=== PATIENT | male | born 1965 | race Caucasian/White ===

== ENCOUNTER 2016-12-05 09:27 | Emergency (ER) | payer OTHER ==
[~2016-12-05] VITALS: Ht 180.3 cm; Wt 204.0 kg
[~2016-12-05 09:27] MED LIST: ACETA500 PO; ERGO1CAP10 PO; FURO1TAB60 PO; GABA300C5 PO; LANTINJ SQ; LEVO125T4 PO; LISI10TA3 PO; METF1000 PO; NOVOLOGP2 SQ; PEN29MIS; POTA75TA PO; SIMV20TA PO
[2016-12-05 09:38] VITALS: BP 144/87; PULSE 100; RESP 17; TEMP 98.1; O2SAT 96
[2016-12-05] MEDS ORDERED: POTA-163 PO (09:53)
[2016-12-05] MEDS ORDERED: PERC10TA27 PO (09:55)
[2016-12-05 10:05] VITALS: RESP 18; O2SAT 97
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
[2016-12-05 10:22] LABS: AUTOMATED NEUTROPHIL # 6.3 TH/MM3 (1.8-7.7); BASOPHIL # 0.1 TH/MM3 (0-0.2); BASOPHIL % 0.7 % (0.0-2.0); EOSINOPHIL # 0.2 TH/MM3 (0-0.4); EOSINOPHIL % 2.5 % (0.0-4.0); HEMO FLAGS DIFF FINAL; LYMPH % 18.1 % (9.0-44.0); LYMPHOCYTE # 1.6 TH/MM3 (1.0-4.8); MEAN CELL VOLUME 93.4 FL (80.0-100.0); MEAN CORPUSCULAR HEMOGLOBIN 30.3 PG (27.0-34.0); MEAN CORPUSCULAR HGB CONC 32.4 % (32.0-36.0); MONO % 7.5 % (0.0-8.0); NEUT % 71.2 % (16.0-70.0); PLATELET COUNT 262 TH/MM3 (150-450); RED BLOOD COUNT 5.89 MIL/MM3 (4.50-5.90); RED CELL DISTRIBUTION WIDTH 15.5 % (11.6-17.2); WHITE BLOOD COUNT 8.8 TH/MM3 (4.0-11.0)
[2016-12-05 11:02] LABS: ALT (GPT) 29 U/L (12-78); ANION GAP 8 MEQ/L (5-15); AST (GOT) 21 U/L (15-37); BICARBONATE 21.2 MEQ/L (21.0-32.0); BLOOD UREA NITROGEN 18 MG/DL (7-18); CHLORIDE 109 MEQ/L (98-107); GLOMERULAR FILTRATION RATE 103 ML/MIN (>89); POTASSIUM 4.3 MEQ/L (3.5-5.1); SODIUM (NA) 138 MEQ/L (136-145)
[2016-12-05 11:04] LABS: ALKALINE PHOSPHATASE 81 U/L (45-117); TOTAL BILIRUBIN ADULT 0.4 MG/DL (0.2-1.0)
[2016-12-05 11:14] LABS: ACETAMINOPHEN LESS THAN 2.0 MCG/ML (10.0-30.0); ALCOHOL LESS THAN 3 MG/DL (0-5)
[2016-12-05 12:00] VITALS: BP 130/77; PULSE 78; RESP 17; TEMP 97.8; O2SAT 98
[2016-12-05 17:50] VITALS: BP 130/78; TEMP 97.8
[2016-12-16] MEDS ORDERED: MIRA25TA PO (10:20)
== END 2016-12-05 17:51 | disposition home or self-care (01) ==
LOC: NEPC 09:27
DX: F32.9 Major depressive disorder, single episode, unspecified (principal); F31.9 Bipolar disorder, unspecified; F12.90 Cannabis use, unspecified, uncomplicated; Z63.4 Disappearance and death of family member; Z72.0 Tobacco use
CPT/HCPCS: 80053; 80307; 85025; 99283

== ENCOUNTER 2017-11-01 13:03 | Observation (INO) ==
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
[2017-11-01 13:46] LABS: Baso # (Auto) 0.1 th/mm3 (0.0-0.2); Eos # (Auto) 0.2 th/mm3 (0.0-0.4); Eos % (Auto) 2.8 % (0.0-4.0); Hematocrit 43.4 % (39.0-51.0); Hemoglobin 14.2 gm/dL (13.0-17.0); Lymph # (Auto) 1.3 th/mm3 (1.0-4.8); Lymph % (Auto) 17.3 % (9.0-44.0); Mean Corpuscular HGB Conc 32.8 % (32.0-36.0); Mean Corpuscular Hemoglobin 31.2 pg (27.0-34.0); Mean Corpuscular Volume 95.3 fL (80.0-100.0); Mean Platelet Volume 9.2 fL (7.0-11.0); Mono # (Auto) 0.5 th/mm3 (0.0-0.9); Mono % (Auto) 7.1 % (0.0-8.0); Neut # (Auto) 5.4 th/mm3 (1.8-7.7); Neut % (Auto) 71.8 % (16.0-70.0); Platelet Count 266 th/mm3 (150-450); Red Blood Count 4.55 mil/mm3 (4.50-5.90); Red Cell Distribution Width 16.6 % (11.6-17.2); White Blood Count 7.4 th/mm3 (4.0-11.0)
[2017-11-01 14:06] LABS: Alanine Aminotransferase 31 U/L (12-78); Albumin 2.9 g/dL (3.4-5.0); Anion Gap 9 meq/L (5-15); Aspartate Aminotransferase 20 U/L (15-37); Blood Urea Nitrogen 24 mg/dL (7-18); Calcium 8.9 mg/dL (8.5-10.1); Carbon Dioxide 29.8 meq/L (21.0-32.0); Chloride 102 meq/L (98-107); Glomerular Filtration Rate 50 mL/min (>89); Glucose,Random 152 mg/dL (74-106); Potassium 4.2 meq/L (3.5-5.1); Sodium 141 meq/L (136-145)
[2017-11-01 14:30] LABS: Alkaline Phosphatase 89 U/L (45-117); Thyroid Stimulating Hormone 0.732 uIU/mL (0.358-3.740); Total Protein 7.1 g/dL (6.4-8.2)
[2017-11-01] MEDS ORDERED: Sod Chloride 0.9% Inj 1,000 ML IV.SIG SCH ×2 (14:30→14:45)
[2017-11-01 15:35] LABS: Amphetamine Screen,Urine Neg (Neg); Barbiturate Screen,Urine Neg (Neg); Cannabinoid Screen,Urine Neg (Neg); Cocaine Screen,Urine Neg (Neg)
[2017-11-01 15:56] LABS: Opiate Screen,Urine Neg (Neg)
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
[2017-11-02] MEDS ORDERED: Dextrose 50% in Water 50 ML Vial IV.PUSH PRN (18:07)
[2017-11-02] MEDS: Furosemide 40 MG Tablet PO SCH (22:21)
[2017-11-02] MEDS: Insulin NovoLOG Aspart Correctional Sugar Inj SQ SCH (22:28)
[2017-11-02] MEDS: Olopatadine 0.1% Opth Drops 5 ML Bottle EACH EYE SCH (23:00)
[2017-11-02] MEDS: Latanoprost 0.005% Opth Drops 2.5 ML Bottle EACH EYE SCH (23:00)
[2017-11-02] MEDS: traZODone 50 MG Tablet PO SCH (23:18)
[2017-11-03] MEDS: Insulin Detemir Inj 1,000 UNIT/10 ML Vial SQ SCH ×3 (00:13→21:53)
[2017-11-03] MEDS: Levothyroxine 125 MCG Tablet PO SCH (06:47)
[2017-11-03] MEDS: Insulin NovoLOG Aspart Correctional Sugar Inj SQ SCH ×4 (09:37→22:17)
[2017-11-03] MEDS: Gabapentin 400 MG Capsule PO SCH ×3 (09:38→17:58)
[2017-11-03] MEDS: Ibuprofen 200 MG Tablet PO SCH ×3 (09:39→17:58)
[2017-11-03] MEDS: Lisinopril 10 MG Tablet PO SCH (09:39)
[2017-11-03] MEDS: FLUoxetine 20 MG Capsule PO SCH (09:39)
[2017-11-03] MEDS: Furosemide 40 MG Tablet PO SCH ×2 (09:41→18:09)
[2017-11-03] MEDS: Olopatadine 0.1% Opth Drops 5 ML Bottle EACH EYE SCH ×2 (09:41→21:54)
[2017-11-03] MEDS: Insulin Aspart Prot 70/30 1,000 UNITS/10 ML Vial SQ SCH ×3 (10:32→17:59)
[2017-11-03] MEDS: Latanoprost 0.005% Opth Drops 2.5 ML Bottle EACH EYE SCH (21:54)
[2017-11-03] MEDS: traZODone 50 MG Tablet PO SCH (21:54)
[2017-11-04] MEDS: Levothyroxine 125 MCG Tablet PO SCH (07:12)
[2017-11-04] MEDS: Insulin NovoLOG Aspart Correctional Sugar Inj SQ SCH ×3 (09:06→18:07)
[2017-11-04] MEDS: Insulin Aspart Prot 70/30 1,000 UNITS/10 ML Vial SQ SCH ×3 (09:06→18:50)
[2017-11-04] MEDS: Gabapentin 400 MG Capsule PO SCH ×3 (09:07→18:52)
[2017-11-04] MEDS: FLUoxetine 20 MG Capsule PO SCH (09:07)
[2017-11-04] MEDS: Lisinopril 10 MG Tablet PO SCH (09:08)
[2017-11-04] MEDS: Furosemide 40 MG Tablet PO SCH ×2 (09:08→18:54)
[2017-11-04] MEDS: Ibuprofen 200 MG Tablet PO SCH ×3 (09:08→18:50)
[2017-11-04] MEDS: Insulin Detemir Inj 1,000 UNIT/10 ML Vial SQ SCH (09:08)
[2017-11-04] MEDS: Olopatadine 0.1% Opth Drops 5 ML Bottle EACH EYE SCH (09:10)
[2017-11-05] MEDS: Latanoprost 0.005% Opth Drops 2.5 ML Bottle EACH EYE SCH ×2 (00:08→20:44)
[2017-11-05] MEDS: Olopatadine 0.1% Opth Drops 5 ML Bottle EACH EYE SCH ×3 (00:08→20:44)
[2017-11-05] MEDS: Insulin Detemir Inj 1,000 UNIT/10 ML Vial SQ SCH ×3 (00:09→20:43)
[2017-11-05] MEDS: traZODone 50 MG Tablet PO SCH ×2 (00:15→20:47)
[2017-11-05] MEDS: Insulin NovoLOG Aspart Correctional Sugar Inj SQ SCH ×4 (00:19→20:43)
[2017-11-05] MEDS: Levothyroxine 125 MCG Tablet PO SCH (05:36)
[2017-11-05] MEDS: Ibuprofen 200 MG Tablet PO SCH ×3 (09:49→18:54)
[2017-11-05] MEDS: Gabapentin 400 MG Capsule PO SCH ×3 (09:51→18:54)
[2017-11-05] MEDS: FLUoxetine 20 MG Capsule PO SCH (09:51)
[2017-11-05] MEDS: Lisinopril 10 MG Tablet PO SCH (09:52)
[2017-11-05] MEDS: Furosemide 40 MG Tablet PO SCH ×2 (09:56→19:10)
[2017-11-05] MEDS: Insulin Aspart Prot 70/30 1,000 UNITS/10 ML Vial SQ SCH ×3 (14:09→18:50)
[2017-11-06] MEDS: Levothyroxine 125 MCG Tablet PO SCH (06:26)
[2017-11-06] MEDS: Insulin Detemir Inj 1,000 UNIT/10 ML Vial SQ SCH ×2 (09:27→21:38)
[2017-11-06] MEDS: Lisinopril 10 MG Tablet PO SCH (09:29)
[2017-11-06] MEDS: FLUoxetine 20 MG Capsule PO SCH (09:29)
[2017-11-06] MEDS: Gabapentin 400 MG Capsule PO SCH ×3 (09:29→18:18)
[2017-11-06] MEDS: Furosemide 40 MG Tablet PO SCH ×2 (09:30→18:18)
[2017-11-06] MEDS: Ibuprofen 200 MG Tablet PO SCH ×3 (09:30→18:17)
[2017-11-06] MEDS: Insulin Aspart Prot 70/30 1,000 UNITS/10 ML Vial SQ SCH ×3 (09:32→18:13)
[2017-11-06] MEDS: Olopatadine 0.1% Opth Drops 5 ML Bottle EACH EYE SCH ×2 (09:33→21:24)
[2017-11-06] MEDS: Insulin NovoLOG Aspart Correctional Sugar Inj SQ SCH ×4 (10:08→21:47)
[2017-11-06] MEDS: Nystatin 100,000 UNITS/GM Powder 15 GM Bottle TOPICAL SCH ×3 (13:15→21:26)
[2017-11-06] MEDS: Latanoprost 0.005% Opth Drops 2.5 ML Bottle EACH EYE SCH (21:24)
[2017-11-06] MEDS: traZODone 50 MG Tablet PO SCH (21:24)
[2017-11-07] MEDS: Levothyroxine 125 MCG Tablet PO SCH (06:29)
[2017-11-07] MEDS: Insulin Aspart Prot 70/30 1,000 UNITS/10 ML Vial SQ SCH ×3 (07:14→17:15)
[2017-11-07] MEDS: Insulin NovoLOG Aspart Correctional Sugar Inj SQ SCH ×4 (08:01→21:09)
[2017-11-07] MEDS: Ibuprofen 200 MG Tablet PO SCH ×3 (08:02→17:15)
[2017-11-07] MEDS: Gabapentin 400 MG Capsule PO SCH ×3 (08:04→17:15)
[2017-11-07] MEDS: Furosemide 40 MG Tablet PO SCH ×2 (08:04→17:15)
[2017-11-07] MEDS: Lisinopril 10 MG Tablet PO SCH (08:04)
[2017-11-07] MEDS: Olopatadine 0.1% Opth Drops 5 ML Bottle EACH EYE SCH ×2 (08:04→21:05)
[2017-11-07] MEDS: FLUoxetine 20 MG Capsule PO SCH (08:04)
[2017-11-07] MEDS: Nystatin 100,000 UNITS/GM Powder 15 GM Bottle TOPICAL SCH ×4 (08:05→21:05)
[2017-11-07] MEDS: Insulin Detemir Inj 1,000 UNIT/10 ML Vial SQ SCH ×2 (08:05→21:09)
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
[2017-11-07 16:43] LABS: Hepatitis A IgM Antibody Nonreactive (Nonreactive); Hepatitits B Surface Antigen Nonreactive (Nonreactive)
[2017-11-07] MEDS: Latanoprost 0.005% Opth Drops 2.5 ML Bottle EACH EYE SCH (21:05)
[2017-11-07] MEDS: traZODone 50 MG Tablet PO SCH (21:07)
[2017-11-08] MEDS: Levothyroxine 125 MCG Tablet PO SCH (05:32)
[2017-11-08] MEDS: Lisinopril 10 MG Tablet PO SCH (09:19)
[2017-11-08] MEDS: Gabapentin 400 MG Capsule PO SCH ×3 (09:19→17:31)
[2017-11-08] MEDS: Ibuprofen 200 MG Tablet PO SCH ×3 (09:19→17:31)
[2017-11-08] MEDS: FLUoxetine 20 MG Capsule PO SCH (09:19)
[2017-11-08] MEDS: Insulin Detemir Inj 1,000 UNIT/10 ML Vial SQ SCH ×2 (09:21→21:57)
[2017-11-08] MEDS: Insulin NovoLOG Aspart Correctional Sugar Inj SQ SCH ×4 (09:34→21:58)
[2017-11-08] MEDS: Furosemide 40 MG Tablet PO SCH ×2 (09:34→17:58)
[2017-11-08] MEDS: Nystatin 100,000 UNITS/GM Powder 15 GM Bottle TOPICAL SCH ×4 (09:35→21:58)
[2017-11-08] MEDS: Olopatadine 0.1% Opth Drops 5 ML Bottle EACH EYE SCH ×2 (09:36→21:59)
[2017-11-08] MEDS: Insulin Aspart Prot 70/30 1,000 UNITS/10 ML Vial SQ SCH ×3 (09:39→17:17)
[2017-11-08 10:00] LABS: Baso # (Auto) 0.1 th/mm3 (0.0-0.2); Baso % (Auto) 0.9 % (0.0-2.0); Eos # (Auto) 0.2 th/mm3 (0.0-0.4); Eos % (Auto) 4.5 % (0.0-4.0); Hematocrit 44.6 % (39.0-51.0); Lymph # (Auto) 1.3 th/mm3 (1.0-4.8); Lymph % (Auto) 23.8 % (9.0-44.0); Mean Corpuscular HGB Conc 33.6 % (32.0-36.0); Mean Corpuscular Hemoglobin 31.6 pg (27.0-34.0); Mean Corpuscular Volume 93.9 fL (80.0-100.0); Mean Platelet Volume 9.5 fL (7.0-11.0); Mono # (Auto) 0.6 th/mm3 (0.0-0.9); Mono % (Auto) 10.3 % (0.0-8.0); Neut # (Auto) 3.3 th/mm3 (1.8-7.7); Neut % (Auto) 60.5 % (16.0-70.0); Platelet Count 199 th/mm3 (150-450); Red Blood Count 4.75 mil/mm3 (4.50-5.90); Red Cell Distribution Width 17.2 % (11.6-17.2); White Blood Count 5.5 th/mm3 (4.0-11.0)
[2017-11-08 10:24] LABS: Albumin 3.3 g/dL (3.4-5.0); Anion Gap 7 meq/L (5-15); Blood Urea Nitrogen 24 mg/dL (7-18); Calcium 8.8 mg/dL (8.5-10.1); Carbon Dioxide 31.5 meq/L (21.0-32.0); Chloride 102 meq/L (98-107); Cholesterol 178 mg/dL (120-200); Glomerular Filtration Rate 82 mL/min (>89); Glucose,Random 123 mg/dL (74-106); Potassium 4.1 meq/L (3.5-5.1); Sodium 140 meq/L (136-145)
[2017-11-08 10:45] LABS: Alanine Aminotransferase 26 U/L (12-78); Alkaline Phosphatase 77 U/L (45-117); Aspartate Aminotransferase 19 U/L (15-37); Chol/HDL Ratio 4.86 Ratio; Free T4 (Free Thyroxine) 1.26 ng/dL (0.76-1.46); HDL Cholesterol 36.6 mg/dL (40.0-60.0); LDL Cholesterol,Calculated 94 mg/dL (0-99); Phosphorus 3.6 mg/dL (2.5-4.9); Thyroid Stimulating Hormone 0.954 uIU/mL (0.358-3.740); Total Protein 7.7 g/dL (6.4-8.2); Triglycerides 237 mg/dL (42-150)
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
[2017-11-08 16:32] LABS: Hemoglobin A1c 7.1 % (4.3-6.0)
[2017-11-08] MEDS: traZODone 50 MG Tablet PO SCH (21:57)
[2017-11-08] MEDS: Latanoprost 0.005% Opth Drops 2.5 ML Bottle EACH EYE SCH (21:59)
[2017-11-09] MEDS: Levothyroxine 125 MCG Tablet PO SCH (05:25)
[2017-11-09] MEDS: Gabapentin 400 MG Capsule PO SCH ×3 (09:35→18:16)
[2017-11-09] MEDS: FLUoxetine 20 MG Capsule PO SCH (09:35)
[2017-11-09] MEDS: Ibuprofen 200 MG Tablet PO SCH ×3 (09:36→18:15)
[2017-11-09] MEDS: Lisinopril 10 MG Tablet PO SCH (09:36)
[2017-11-09] MEDS: Nystatin 100,000 UNITS/GM Powder 15 GM Bottle TOPICAL SCH ×4 (09:37→20:58)
[2017-11-09] MEDS: Olopatadine 0.1% Opth Drops 5 ML Bottle EACH EYE SCH ×2 (09:38→20:59)
[2017-11-09] MEDS: Furosemide 40 MG Tablet PO SCH ×2 (09:41→18:16)
[2017-11-09] MEDS: Insulin NovoLOG Aspart Correctional Sugar Inj SQ SCH ×4 (09:41→20:59)
[2017-11-09] MEDS: Insulin Aspart Prot 70/30 1,000 UNITS/10 ML Vial SQ SCH ×3 (09:42→18:12)
[2017-11-09] MEDS: Insulin Detemir Inj 1,000 UNIT/10 ML Vial SQ SCH ×2 (09:46→21:12)
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
[2017-11-09] MEDS: traZODone 50 MG Tablet PO SCH (20:57)
[2017-11-09] MEDS: Latanoprost 0.005% Opth Drops 2.5 ML Bottle EACH EYE SCH (20:58)
[2017-11-10] MEDS: Levothyroxine 125 MCG Tablet PO SCH (05:08)
[2017-11-10] MEDS: Lisinopril 10 MG Tablet PO SCH (09:27)
[2017-11-10] MEDS: Gabapentin 400 MG Capsule PO SCH ×3 (09:27→18:04)
[2017-11-10] MEDS: Ibuprofen 200 MG Tablet PO SCH ×3 (09:27→18:04)
[2017-11-10] MEDS: FLUoxetine 20 MG Capsule PO SCH (09:27)
[2017-11-10] MEDS: Insulin Detemir Inj 1,000 UNIT/10 ML Vial SQ SCH ×2 (09:28→21:52)
[2017-11-10] MEDS: Insulin NovoLOG Aspart Correctional Sugar Inj SQ SCH ×4 (09:28→21:52)
[2017-11-10] MEDS: Insulin Aspart Prot 70/30 1,000 UNITS/10 ML Vial SQ SCH ×3 (09:28→18:05)
[2017-11-10] MEDS: Furosemide 40 MG Tablet PO SCH ×2 (09:28→18:05)
[2017-11-10] MEDS: Olopatadine 0.1% Opth Drops 5 ML Bottle EACH EYE SCH ×2 (09:29→21:53)
[2017-11-10] MEDS: Nystatin 100,000 UNITS/GM Powder 15 GM Bottle TOPICAL SCH ×4 (09:29→21:53)
[2017-11-10] MEDS: traZODone 50 MG Tablet PO SCH ×2 (21:52→21:55)
[2017-11-10] MEDS: Latanoprost 0.005% Opth Drops 2.5 ML Bottle EACH EYE SCH (21:53)
[2017-11-11] MEDS: Levothyroxine 125 MCG Tablet PO SCH (05:10)
[2017-11-11] MEDS: Insulin Aspart Prot 70/30 1,000 UNITS/10 ML Vial SQ SCH ×3 (09:06→16:19)
[2017-11-11] MEDS: Insulin NovoLOG Aspart Correctional Sugar Inj SQ SCH ×4 (09:06→22:25)
[2017-11-11] MEDS: Gabapentin 400 MG Capsule PO SCH ×3 (09:38→17:57)
[2017-11-11] MEDS: Ibuprofen 200 MG Tablet PO SCH ×3 (09:39→17:57)
[2017-11-11] MEDS: FLUoxetine 20 MG Capsule PO SCH (09:39)
[2017-11-11] MEDS: Lisinopril 10 MG Tablet PO SCH (09:39)
[2017-11-11] MEDS: Olopatadine 0.1% Opth Drops 5 ML Bottle EACH EYE SCH ×2 (09:40→22:27)
[2017-11-11] MEDS: Nystatin 100,000 UNITS/GM Powder 15 GM Bottle TOPICAL SCH ×4 (09:40→22:25)
[2017-11-11] MEDS: Insulin Detemir Inj 1,000 UNIT/10 ML Vial SQ SCH ×2 (09:40→22:25)
[2017-11-11] MEDS: Furosemide 40 MG Tablet PO SCH ×2 (09:41→17:57)
[2017-11-11] MEDS: traZODone 50 MG Tablet PO SCH (22:25)
[2017-11-11] MEDS: Latanoprost 0.005% Opth Drops 2.5 ML Bottle EACH EYE SCH (22:26)
[2017-11-12] MEDS: Levothyroxine 125 MCG Tablet PO SCH (05:57)
[2017-11-12] MEDS: FLUoxetine 20 MG Capsule PO SCH (09:23)
[2017-11-12] MEDS: Ibuprofen 200 MG Tablet PO SCH ×3 (09:23→18:09)
[2017-11-12] MEDS: Gabapentin 400 MG Capsule PO SCH ×3 (09:24→18:08)
[2017-11-12] MEDS: Insulin Aspart Prot 70/30 1,000 UNITS/10 ML Vial SQ SCH ×3 (09:24→18:09)
[2017-11-12] MEDS: Insulin NovoLOG Aspart Correctional Sugar Inj SQ SCH ×4 (09:24→20:53)
[2017-11-12] MEDS: Lisinopril 10 MG Tablet PO SCH (09:24)
[2017-11-12] MEDS: Insulin Detemir Inj 1,000 UNIT/10 ML Vial SQ SCH ×2 (09:25→20:52)
[2017-11-12] MEDS: Nystatin 100,000 UNITS/GM Powder 15 GM Bottle TOPICAL SCH ×4 (09:25→20:53)
[2017-11-12] MEDS: Olopatadine 0.1% Opth Drops 5 ML Bottle EACH EYE SCH ×2 (09:26→20:53)
[2017-11-12] MEDS: Furosemide 40 MG Tablet PO SCH ×2 (09:34→18:09)
[2017-11-12] MEDS: traZODone 50 MG Tablet PO SCH (20:52)
[2017-11-12] MEDS: Latanoprost 0.005% Opth Drops 2.5 ML Bottle EACH EYE SCH (20:54)
[2017-11-13] MEDS: Levothyroxine 125 MCG Tablet PO SCH (05:05)
[2017-11-13] MEDS: Insulin NovoLOG Aspart Correctional Sugar Inj SQ SCH ×4 (08:43→20:33)
[2017-11-13] MEDS: Ibuprofen 200 MG Tablet PO SCH ×3 (09:27→18:16)
[2017-11-13] MEDS: FLUoxetine 20 MG Capsule PO SCH (09:28)
[2017-11-13] MEDS: Insulin Aspart Prot 70/30 1,000 UNITS/10 ML Vial SQ SCH ×3 (09:28→18:17)
[2017-11-13] MEDS: Furosemide 40 MG Tablet PO SCH ×2 (09:28→18:17)
[2017-11-13] MEDS: Gabapentin 400 MG Capsule PO SCH ×3 (09:28→18:17)
[2017-11-13] MEDS: Lisinopril 10 MG Tablet PO SCH (09:28)
[2017-11-13] MEDS: Olopatadine 0.1% Opth Drops 5 ML Bottle EACH EYE SCH ×2 (09:29→20:33)
[2017-11-13] MEDS: Insulin Detemir Inj 1,000 UNIT/10 ML Vial SQ SCH ×2 (09:29→20:33)
[2017-11-13] MEDS: Nystatin 100,000 UNITS/GM Powder 15 GM Bottle TOPICAL SCH ×4 (09:29→20:33)
[2017-11-13] MEDS: traZODone 50 MG Tablet PO SCH (20:32)
[2017-11-13] MEDS: Latanoprost 0.005% Opth Drops 2.5 ML Bottle EACH EYE SCH (20:33)
[2017-11-14] MEDS: Levothyroxine 125 MCG Tablet PO SCH (05:05)
[2017-11-14] MEDS: FLUoxetine 20 MG Capsule PO SCH (08:26)
[2017-11-14] MEDS: Insulin NovoLOG Aspart Correctional Sugar Inj SQ SCH ×4 (08:27→20:07)
[2017-11-14] MEDS: Gabapentin 400 MG Capsule PO SCH ×3 (08:27→17:07)
[2017-11-14] MEDS: Insulin Aspart Prot 70/30 1,000 UNITS/10 ML Vial SQ SCH ×3 (08:27→17:07)
[2017-11-14] MEDS: Lisinopril 10 MG Tablet PO SCH (08:27)
[2017-11-14] MEDS: Ibuprofen 200 MG Tablet PO SCH ×3 (08:28→17:07)
[2017-11-14] MEDS: Insulin Detemir Inj 1,000 UNIT/10 ML Vial SQ SCH ×2 (08:28→20:08)
[2017-11-14] MEDS: Nystatin 100,000 UNITS/GM Powder 15 GM Bottle TOPICAL SCH ×4 (08:29→20:04)
[2017-11-14] MEDS: Furosemide 40 MG Tablet PO SCH ×2 (08:30→17:07)
[2017-11-14] MEDS: Olopatadine 0.1% Opth Drops 5 ML Bottle EACH EYE SCH ×2 (08:31→20:04)
--- NOTE | 2017-11-14 09:01 | P.PNIM ---
Subjective Interval history: Placement remains the primary issue on this 'bedded outpatient' status patient. No medical concerns. Physical Exam Vital signs: Vital Signs 11/13/17 12:00 11/13/17 16:00 11/13/17 18:00 Temperature 98.3 F 98.6 F 98.6 F Pulse Rate 82 84 84 Respiratory Rate 17 20 20 Blood Pressure 126/78 134/65 134/65 Pulse Oximetry 95 92 L 92 L 11/13/17 20:00 11/14/17 00:00 11/14/17 04:00 Temperature 97.5 F L 97.8 F 97.8 F Pulse Rate 75 72 74 Respiratory Rate 22 17 17 Blood Pressure 138/65 132/67 136/65 Pulse Oximetry 95 95 94 L 11/14/17 05:53 Temperature Pulse Rate Respiratory Rate 16 Blood Pressure Pulse Oximetry Intake & Output 11/13/17 11/14/17 11/14/17 18:59 06:59 18:59 Intake Total 480 / 480 Balance 480 / 480 Weight 196.4 kg Intake: Oral 480 / 480 Other: # Voids 5 Date of Last Bowel Movement 11/11/17 # Bowel Movements 0 Results - Labs CBC & Chem 7: 11/08/17 09:15 11/08/17 09:15 Laboratory Results - last 24 hr 11/13/17 11/13/17 11/14/17 11:29 19:44 07:34 POC Glucose 153 H 197 H 107 - Procedures NONE Assessment and Plan - Assessment (1) Encounter for medical clearance for patient hold Code(s): Z00.8 - Encounter for other general examination Status: Acute (2) Adjustment disorder with mixed disturbance of emotions and conduct Code(s): F43.25 - Adjustment disorder with mixed disturbance of emotions and conduct Status: Acute (3) Social problem Code(s): Z65.9 - Problem related to unspecified psychosocial circumstances Status: Acute - Plan 52-year-old male in the emergency department secondary to adjustment disorder with difficult placement situation. Anxiety COPD (chronic obstructive pulmonary disease) Cellulitis Chronic pain Depressive disorder Diabetes Hypertension Continue baseline treatments DVT prophylaxis SCDs Discharge planning Patient has no medical issues to justify a hospital admit, 'bedded outpatient' status discharge when placement available, as of 11/02/17
[2017-11-14] MEDS: Latanoprost 0.005% Opth Drops 2.5 ML Bottle EACH EYE SCH (20:05)
[2017-11-14] MEDS: traZODone 50 MG Tablet PO SCH (20:06)
[2017-11-15] MEDS: Levothyroxine 125 MCG Tablet PO SCH (05:36)
[2017-11-15] MEDS: Insulin Detemir Inj 1,000 UNIT/10 ML Vial SQ SCH ×2 (09:28→21:37)
[2017-11-15] MEDS: Ibuprofen 200 MG Tablet PO SCH ×3 (09:29→17:40)
[2017-11-15] MEDS: Gabapentin 400 MG Capsule PO SCH ×3 (09:29→17:41)
[2017-11-15] MEDS: Lisinopril 10 MG Tablet PO SCH (09:31)
[2017-11-15] MEDS: FLUoxetine 20 MG Capsule PO SCH (09:31)
[2017-11-15] MEDS: Insulin NovoLOG Aspart Correctional Sugar Inj SQ SCH ×4 (09:32→21:38)
[2017-11-15] MEDS: Insulin Aspart Prot 70/30 1,000 UNITS/10 ML Vial SQ SCH ×3 (09:32→17:42)
[2017-11-15] MEDS: Olopatadine 0.1% Opth Drops 5 ML Bottle EACH EYE SCH ×2 (09:33→21:43)
[2017-11-15] MEDS: Nystatin 100,000 UNITS/GM Powder 15 GM Bottle TOPICAL SCH ×4 (09:33→21:38)
[2017-11-15] MEDS: Furosemide 40 MG Tablet PO SCH ×2 (09:38→17:40)
--- NOTE | 2017-11-15 17:25 | P.PN ---
Subjective Interval history: Patient was seen today. No acute complaints. Wants trazodone to be discontinued. Placement issue remains. Physical Exam Vital signs: Vital Signs 11/14/17 20:00 11/15/17 00:00 11/15/17 04:00 Temperature 96.9 F L 97.6 F 97.7 F Pulse Rate 78 71 77 Respiratory Rate 16 18 18 Blood Pressure 120/73 113/68 125/75 Pulse Oximetry 95 96 97 11/15/17 08:00 11/15/17 11:29 11/15/17 12:00 Temperature 97.5 F L 97.3 F L Pulse Rate 77 95 H Respiratory Rate 22 18 22 Blood Pressure 152/91 H 142/69 H Pulse Oximetry 94 L 94 L 11/15/17 14:11 Temperature Pulse Rate Respiratory Rate 18 Blood Pressure Pulse Oximetry Intake & Output 11/14/17 11/15/17 11/15/17 18:59 06:59 18:59 Intake Total 600 / 600 Output Total 600 / 600 Balance 0 / 0 Weight 197.1 kg Intake: Oral 600 / 600 Output: Urine 600 / 600 Other: # Voids 4 Date of Last Bowel Movement 11/11/17 11/11/17 Narrative: GENERAL: This is an obese male, in no apparent distress. SKIN: Warm and dry. HEENT: Normocephalic. Pupils equal round and reactive. Nose without bleeding. Airway patent. NECK: Trachea midline. CARDIOVASCULAR: Regular rate and rhythm without murmurs, gallops, or rubs. RESPIRATORY: No wheezes, rales, or rhonchi. GASTROINTESTINAL: Abdomen soft, non-tender, obese. Bowel Sounds normoactive x4. MUSCULOSKELETAL: Extremities without clubbing, cyanosis. NEUROLOGICAL: Awake and alert. No focal neuro deficit. Moves all extremities. Normal speech. Results - Labs CBC & Chem 7: 11/08/17 09:15 11/08/17 09:15 Laboratory Results - last 24 hr 11/14/17 11/15/17 20:03 07:49 POC Glucose 110 97 - Procedures NONE Assessment and Plan - Assessment (1) Encounter for medical clearance for patient hold Code(s): Z00.8 - Encounter for other general examination Status: Acute (2) Adjustment disorder with mixed disturbance of emotions and conduct Code(s): F43.25 - Adjustment disorder with mixed disturbance of emotions and conduct Status: Acute (3) Social problem Code(s): Z65.9 - Problem related to unspecified psychosocial circumstances Status: Acute - Plan 52-year-old male in the emergency department secondary to adjustment disorder with difficult placement situation. Anxiety COPD (chronic obstructive pulmonary disease) Cellulitis Chronic pain Depressive disorder Diabetes Hypertension -Continue baseline treatments -Hold trazodone -E-FORCSE Prescription Drug Monitoring Database has been queried and verified prior to prescribing the controlled substance. On Alprazolam 0.5mg TID , last prescribed 09/03/17. Will give alprazolam 0.5 mg BID PRN. DVT prophylaxis SCDs Code Status: Full code Discussed Condition With: Patient, nurse Discharge Planning: Placement issue. Patient is bedded outpatient
[2017-11-15] MEDS: ALPRAZolam 0.5 MG Tablet PO PRN (21:37)
[2017-11-15] MEDS: Latanoprost 0.005% Opth Drops 2.5 ML Bottle EACH EYE SCH (21:42)
[2017-11-16] MEDS: Levothyroxine 125 MCG Tablet PO SCH (06:11)
[2017-11-16] MEDS: FLUoxetine 20 MG Capsule PO SCH (08:43)
[2017-11-16] MEDS: Gabapentin 400 MG Capsule PO SCH ×3 (08:46→18:20)
[2017-11-16] MEDS: Lisinopril 10 MG Tablet PO SCH (08:47)
[2017-11-16] MEDS: Ibuprofen 200 MG Tablet PO SCH ×3 (08:48→18:20)
[2017-11-16] MEDS: Olopatadine 0.1% Opth Drops 5 ML Bottle EACH EYE SCH ×2 (08:53→20:44)
[2017-11-16] MEDS: Insulin NovoLOG Aspart Correctional Sugar Inj SQ SCH ×4 (08:58→20:44)
[2017-11-16] MEDS: Furosemide 40 MG Tablet PO SCH ×2 (10:22→19:20)
[2017-11-16] MEDS: Insulin Detemir Inj 1,000 UNIT/10 ML Vial SQ SCH ×2 (10:22→20:39)
[2017-11-16] MEDS: Nystatin 100,000 UNITS/GM Powder 15 GM Bottle TOPICAL SCH ×4 (10:23→20:44)
[2017-11-16] MEDS: Insulin Aspart Prot 70/30 1,000 UNITS/10 ML Vial SQ SCH ×3 (10:40→18:18)
--- NOTE | 2017-11-16 15:37 | P.PN ---
Subjective Interval history: Patient was seen today. No acute complaints. Laying in the recliner, falling asleep. Physical Exam Vital signs: Vital Signs 11/15/17 16:00 11/15/17 19:09 11/15/17 20:00 Temperature 97.6 F 97.8 F Pulse Rate 77 87 Respiratory Rate 20 18 18 Blood Pressure 134/70 100/59 L Pulse Oximetry 94 L 97 11/16/17 00:00 11/16/17 04:00 11/16/17 08:00 Temperature 98.8 F 97.4 F L 97.1 F L Pulse Rate 79 83 83 Respiratory Rate 18 20 20 Blood Pressure 120/64 94/72 L 140/71 Pulse Oximetry 92 L 92 L 87 L Intake & Output 11/15/17 11/16/17 11/16/17 18:59 06:59 18:59 Intake Total 440 / 440 Balance 440 / 440 Weight 193.2 kg Intake: Oral 440 / 440 Other: # Voids 6 Date of Last Bowel Movement 11/11/17 11/16/17 # Bowel Movements 0 Narrative: GENERAL: This is an obese male, in no apparent distress. MUSCULOSKELETAL: Extremities without clubbing, cyanosis. NEUROLOGICAL:No focal neuro deficit. Moves all extremities. Normal speech. Results - Labs CBC & Chem 7: 11/08/17 09:15 11/08/17 09:15 Laboratory Results - last 24 hr 11/15/17 11/16/17 11/16/17 20:34 07:59 12:50 POC Glucose 114 H 122 H 118 H - Procedures NONE Assessment and Plan - Assessment (1) Encounter for medical clearance for patient hold Code(s): Z00.8 - Encounter for other general examination Status: Acute (2) Adjustment disorder with mixed disturbance of emotions and conduct Code(s): F43.25 - Adjustment disorder with mixed disturbance of emotions and conduct Status: Acute (3) Social problem Code(s): Z65.9 - Problem related to unspecified psychosocial circumstances Status: Acute - Plan 52-year-old male in the emergency department secondary to adjustment disorder with difficult placement situation. Anxiety COPD (chronic obstructive pulmonary disease) Cellulitis Chronic pain Depressive disorder Diabetes Hypertension -Continue baseline treatments -Hold trazodone -E-FORCSE Prescription Drug Monitoring Database has been queried and verified prior to prescribing the controlled substance. On Alprazolam 0.5mg TID , last prescribed 09/03/17. Will give alprazolam 0.5 mg q8 PRN. DVT prophylaxis SCDs Code Status: Full code Discussed Condition With: Patient, nursing Discharge Planning: Placement issue. Patient is bedded outpatient
[2017-11-16] MEDS: Latanoprost 0.005% Opth Drops 2.5 ML Bottle EACH EYE SCH (20:41)
[2017-11-16] MEDS: ALPRAZolam 0.5 MG Tablet PO PRN (20:43)
[2017-11-17] MEDS: Levothyroxine 125 MCG Tablet PO SCH (05:36)
[2017-11-17] MEDS: FLUoxetine 20 MG Capsule PO SCH (09:59)
[2017-11-17] MEDS: Gabapentin 400 MG Capsule PO SCH ×3 (09:59→19:00)
[2017-11-17] MEDS: Ibuprofen 200 MG Tablet PO SCH ×3 (10:00→18:59)
[2017-11-17] MEDS: Furosemide 40 MG Tablet PO SCH ×2 (10:02→19:03)
[2017-11-17] MEDS: Lisinopril 10 MG Tablet PO SCH (10:03)
[2017-11-17] MEDS: Nystatin 100,000 UNITS/GM Powder 15 GM Bottle TOPICAL SCH ×4 (10:05→20:56)
[2017-11-17] MEDS: Insulin NovoLOG Aspart Correctional Sugar Inj SQ SCH ×4 (10:05→21:01)
[2017-11-17] MEDS: Olopatadine 0.1% Opth Drops 5 ML Bottle EACH EYE SCH ×2 (10:05→20:56)
[2017-11-17] MEDS: Insulin Aspart Prot 70/30 1,000 UNITS/10 ML Vial SQ SCH ×3 (10:11→19:01)
[2017-11-17] MEDS: Insulin Detemir Inj 1,000 UNIT/10 ML Vial SQ SCH ×2 (10:12→20:56)
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
[2017-11-17] MEDS: Latanoprost 0.005% Opth Drops 2.5 ML Bottle EACH EYE SCH (20:56)
[2017-11-18] MEDS: Levothyroxine 125 MCG Tablet PO SCH (05:44)
[2017-11-18] MEDS: ALPRAZolam 0.5 MG Tablet PO PRN (05:47)
[2017-11-18] MEDS: Insulin NovoLOG Aspart Correctional Sugar Inj SQ SCH ×4 (07:45→22:11)
[2017-11-18] MEDS: Ibuprofen 200 MG Tablet PO SCH ×3 (08:16→17:46)
[2017-11-18] MEDS: Gabapentin 400 MG Capsule PO SCH ×3 (08:16→17:46)
[2017-11-18] MEDS: FLUoxetine 20 MG Capsule PO SCH (08:16)
[2017-11-18] MEDS: Lisinopril 10 MG Tablet PO SCH (08:17)
[2017-11-18] MEDS: Insulin Aspart Prot 70/30 1,000 UNITS/10 ML Vial SQ SCH ×3 (08:17→17:47)
[2017-11-18] MEDS: Furosemide 40 MG Tablet PO SCH ×2 (08:18→17:46)
[2017-11-18] MEDS: Insulin Detemir Inj 1,000 UNIT/10 ML Vial SQ SCH ×2 (08:19→22:10)
[2017-11-18] MEDS: Nystatin 100,000 UNITS/GM Powder 15 GM Bottle TOPICAL SCH ×4 (08:19→22:11)
[2017-11-18] MEDS: Olopatadine 0.1% Opth Drops 5 ML Bottle EACH EYE SCH ×2 (08:19→22:12)
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
[2017-11-18] MEDS: Latanoprost 0.005% Opth Drops 2.5 ML Bottle EACH EYE SCH (22:12)
[2017-11-19] MEDS: Levothyroxine 125 MCG Tablet PO SCH (05:40)
[2017-11-19] MEDS: Ibuprofen 200 MG Tablet PO SCH ×3 (08:33→17:34)
[2017-11-19] MEDS: Lisinopril 10 MG Tablet PO SCH (08:33)
[2017-11-19] MEDS: Insulin NovoLOG Aspart Correctional Sugar Inj SQ SCH ×4 (08:34→22:06)
[2017-11-19] MEDS: Insulin Aspart Prot 70/30 1,000 UNITS/10 ML Vial SQ SCH ×3 (08:35→17:38)
[2017-11-19] MEDS: Insulin Detemir Inj 1,000 UNIT/10 ML Vial SQ SCH ×2 (08:35→22:06)
[2017-11-19] MEDS: Gabapentin 400 MG Capsule PO SCH ×3 (08:35→17:34)
[2017-11-19] MEDS: Furosemide 40 MG Tablet PO SCH ×2 (08:40→17:35)
[2017-11-19] MEDS: Nystatin 100,000 UNITS/GM Powder 15 GM Bottle TOPICAL SCH ×4 (08:41→22:07)
[2017-11-19] MEDS: Olopatadine 0.1% Opth Drops 5 ML Bottle EACH EYE SCH ×2 (08:41→22:07)
[2017-11-19] MEDS: FLUoxetine 20 MG Capsule PO SCH (08:41)
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
[2017-11-19] MEDS: Latanoprost 0.005% Opth Drops 2.5 ML Bottle EACH EYE SCH (22:07)
[2017-11-20] MEDS: Levothyroxine 125 MCG Tablet PO SCH (05:56)
[2017-11-20] MEDS: Lisinopril 10 MG Tablet PO SCH (08:06)
[2017-11-20] MEDS: Insulin NovoLOG Aspart Correctional Sugar Inj SQ SCH ×4 (08:06→21:34)
[2017-11-20] MEDS: Furosemide 40 MG Tablet PO SCH ×2 (08:07→17:20)
[2017-11-20] MEDS: Gabapentin 400 MG Capsule PO SCH ×3 (08:07→17:20)
[2017-11-20] MEDS: Ibuprofen 200 MG Tablet PO SCH (08:07)
[2017-11-20] MEDS: FLUoxetine 20 MG Capsule PO SCH (08:08)
[2017-11-20] MEDS: Insulin Aspart Prot 70/30 1,000 UNITS/10 ML Vial SQ SCH ×3 (08:08→17:21)
[2017-11-20] MEDS: Insulin Detemir Inj 1,000 UNIT/10 ML Vial SQ SCH ×2 (08:09→21:35)
[2017-11-20] MEDS: Olopatadine 0.1% Opth Drops 5 ML Bottle EACH EYE SCH ×2 (08:10→21:20)
[2017-11-20] MEDS: Nystatin 100,000 UNITS/GM Powder 15 GM Bottle TOPICAL SCH ×4 (08:10→21:20)
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
[2017-11-20] MEDS: Latanoprost 0.005% Opth Drops 2.5 ML Bottle EACH EYE SCH (21:20)
[2017-11-21] MEDS: Ibuprofen 400 MG Tablet PO PRN (02:49)
[2017-11-21] MEDS: ALPRAZolam 0.5 MG Tablet PO PRN ×2 (02:52→20:22)
[2017-11-21] MEDS: Levothyroxine 125 MCG Tablet PO SCH (06:13)
[2017-11-21] MEDS: Insulin NovoLOG Aspart Correctional Sugar Inj SQ SCH ×4 (08:55→20:24)
[2017-11-21] MEDS: Insulin Detemir Inj 1,000 UNIT/10 ML Vial SQ SCH ×2 (08:56→20:23)
[2017-11-21] MEDS: Insulin Aspart Prot 70/30 1,000 UNITS/10 ML Vial SQ SCH ×3 (09:00→18:41)
[2017-11-21] MEDS: Gabapentin 400 MG Capsule PO SCH ×3 (09:02→18:46)
[2017-11-21] MEDS: Olopatadine 0.1% Opth Drops 5 ML Bottle EACH EYE SCH ×2 (09:02→20:23)
[2017-11-21] MEDS: Nystatin 100,000 UNITS/GM Powder 15 GM Bottle TOPICAL SCH ×4 (09:02→20:23)
[2017-11-21] MEDS: FLUoxetine 20 MG Capsule PO SCH (09:03)
[2017-11-21] MEDS: Lisinopril 10 MG Tablet PO SCH (09:03)
[2017-11-21] MEDS: Furosemide 40 MG Tablet PO SCH ×2 (09:06→18:46)
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
[2017-11-21] MEDS: Latanoprost 0.005% Opth Drops 2.5 ML Bottle EACH EYE SCH (20:23)
[2017-11-22] MEDS: Levothyroxine 125 MCG Tablet PO SCH (06:07)
[2017-11-22] MEDS: Insulin Detemir Inj 1,000 UNIT/10 ML Vial SQ SCH ×2 (08:41→21:40)
[2017-11-22] MEDS: Insulin NovoLOG Aspart Correctional Sugar Inj SQ SCH ×4 (08:41→21:41)
[2017-11-22] MEDS: Furosemide 40 MG Tablet PO SCH ×2 (08:42→17:09)
[2017-11-22] MEDS: Insulin Aspart Prot 70/30 1,000 UNITS/10 ML Vial SQ SCH ×2 (08:42→08:50)
[2017-11-22] MEDS: Lisinopril 10 MG Tablet PO SCH (08:43)
[2017-11-22] MEDS: Nystatin 100,000 UNITS/GM Powder 15 GM Bottle TOPICAL SCH ×4 (08:43→21:39)
[2017-11-22] MEDS: FLUoxetine 20 MG Capsule PO SCH (08:43)
[2017-11-22] MEDS: Gabapentin 400 MG Capsule PO SCH ×3 (08:43→17:07)
[2017-11-22] MEDS: Olopatadine 0.1% Opth Drops 5 ML Bottle EACH EYE SCH ×2 (08:44→21:39)
[2017-11-22] MEDS: ALPRAZolam 0.5 MG Tablet PO PRN ×2 (09:36→21:45)
--- NOTE | 2017-11-22 10:25 | P.PNIM ---
Subjective Interval history: in no acute distress. denies pain and looks comfortable. Physical Exam Vital signs: Vital Signs 11/21/17 15:30 11/21/17 20:00 11/22/17 00:00 Temperature 97.5 F L 97.9 F 98.1 F Pulse Rate 83 77 70 Respiratory Rate 20 20 Blood Pressure 101/68 149/60 H 122/56 L Pulse Oximetry 95 93 L 95 11/22/17 04:00 11/22/17 08:00 Temperature 98 F 98.1 F Pulse Rate 74 79 Respiratory Rate 20 20 Blood Pressure 131/74 136/74 Pulse Oximetry 91 L 95 Intake & Output 11/21/17 11/22/17 11/22/17 18:59 06:59 18:59 Intake Total 840 / 840 240 / 240 Output Total 600 / 600 Balance 240 / 240 240 / 240 Weight 193 kg Intake: Oral 840 / 840 240 / 240 Output: Urine 600 / 600 Other: # Voids 2 Date of Last Bowel Movement 11/20/17 # Bowel Movements 0 - Constitutional no acute distress - Routine Respiratory Exam Present: CTA bilaterally - Routine Cardiovascular Exam Present: RRR - Routine Abdominal Exam Present: soft - Routine Extremities Exam Comments: bilateral pedal edema. - Routine Neurological Exam Present: alert, oriented X3 Results - Labs CBC & Chem 7: 11/08/17 09:15 11/20/17 00:48 Laboratory Results - last 24 hr 11/21/17 11/21/17 12:49 19:51 POC Glucose 123 H 164 H - Procedures NONE Assessment and Plan - Assessment (1) Encounter for medical clearance for patient hold Code(s): Z00.8 - Encounter for other general examination Status: Acute (2) Adjustment disorder with mixed disturbance of emotions and conduct Code(s): F43.25 - Adjustment disorder with mixed disturbance of emotions and conduct Status: Acute (3) Social problem Code(s): Z65.9 - Problem related to unspecified psychosocial circumstances Status: Acute - Plan Anxiety- calm COPD (chronic obstructive pulmonary disease)- in remission Cellulitis- resolved Chronic pain- controlled Depressive disorder- interactive Diabetes- will continue levemir and accu-check- will hold 70/30. Hypertension -Continue baseline treatments -Hold trazodone -E-FORCSE Prescription Drug Monitoring Database has been queried and verified prior to prescribing the controlled substance. On Alprazolam 0.5mg TID , last prescribed 09/03/17. Will give alprazolam 0.5 mg q8 PRN. DVT prophylaxis SCDs consulted PT. Discharge Planning: he doesn't want to go back to his previous residence. dc planning in progress.
[2017-11-22] MEDS: Latanoprost 0.005% Opth Drops 2.5 ML Bottle EACH EYE SCH (21:39)
[2017-11-23] MEDS: ALPRAZolam 0.5 MG Tablet PO PRN ×2 (06:15→16:41)
[2017-11-23] MEDS: Levothyroxine 125 MCG Tablet PO SCH (06:15)
[2017-11-23] MEDS: Insulin NovoLOG Aspart Correctional Sugar Inj SQ SCH ×4 (07:48→21:00)
[2017-11-23] MEDS: Gabapentin 400 MG Capsule PO SCH ×3 (09:50→17:25)
[2017-11-23] MEDS: FLUoxetine 20 MG Capsule PO SCH (09:51)
[2017-11-23] MEDS: Furosemide 40 MG Tablet PO SCH ×2 (09:51→17:25)
[2017-11-23] MEDS: Lisinopril 10 MG Tablet PO SCH (09:51)
[2017-11-23] MEDS: Nystatin 100,000 UNITS/GM Powder 15 GM Bottle TOPICAL SCH ×4 (09:51→20:59)
[2017-11-23] MEDS: Insulin Detemir Inj 1,000 UNIT/10 ML Vial SQ SCH ×2 (09:51→20:59)
[2017-11-23] MEDS: Olopatadine 0.1% Opth Drops 5 ML Bottle EACH EYE SCH ×2 (09:52→20:59)
--- NOTE | 2017-11-23 12:14 | P.PNIM ---
Subjective Interval history: in no distress. clinically no change. Physical Exam Vital signs: Vital Signs 11/22/17 20:00 11/22/17 21:30 11/23/17 08:00 Temperature 98.0 F 97.4 F L Pulse Rate 98 H 76 76 Respiratory Rate 20 20 17 Blood Pressure 161/89 H 138/72 146/81 H Pulse Oximetry 94 L 95 94 L Intake & Output 11/22/17 11/23/17 11/23/17 18:59 06:59 18:59 Intake Total 480 / 480 720 / 720 Balance 480 / 480 720 / 720 Weight 193 kg Intake: Oral 480 / 480 720 / 720 Other: # Voids 2 4 Date of Last Bowel Movement 11/22/17 # Bowel Movements 1 - Constitutional no acute distress (no change clinically.) Results - Labs CBC & Chem 7: 11/08/17 09:15 11/20/17 00:48 Laboratory Results - last 24 hr 11/23/17 07:37 POC Glucose 93 - Procedures NONE Assessment and Plan - Assessment (1) Encounter for medical clearance for patient hold Code(s): Z00.8 - Encounter for other general examination Status: Acute (2) Adjustment disorder with mixed disturbance of emotions and conduct Code(s): F43.25 - Adjustment disorder with mixed disturbance of emotions and conduct Status: Acute (3) Social problem Code(s): Z65.9 - Problem related to unspecified psychosocial circumstances Status: Acute - Plan Anxiety- calm COPD (chronic obstructive pulmonary disease)- in remission Cellulitis- resolved Chronic pain- controlled Depressive disorder- interactive Diabetes- will continue levemir and accu-check- will hold . Hypertension -Continue baseline treatments -Hold trazodone -E-FORCSE Prescription Drug Monitoring Database has been queried and verified prior to prescribing the controlled substance. On Alprazolam 0.5mg TID , last prescribed 09/03/17. Will give alprazolam 0.5 mg q8 PRN. DVT prophylaxis SCDs consulted PT. Discharge Planning: he doesn't want to go back to his previous residence. dc planning in progress.
[2017-11-23] MEDS: Ibuprofen 400 MG Tablet PO PRN (16:41)
[2017-11-23] MEDS: Latanoprost 0.005% Opth Drops 2.5 ML Bottle EACH EYE SCH (20:59)
[2017-11-24] MEDS: Levothyroxine 125 MCG Tablet PO SCH (05:29)
[2017-11-24] MEDS: ALPRAZolam 0.5 MG Tablet PO PRN (06:03)
[2017-11-24] MEDS: Insulin NovoLOG Aspart Correctional Sugar Inj SQ SCH ×4 (09:10→20:43)
[2017-11-24] MEDS: Insulin Detemir Inj 1,000 UNIT/10 ML Vial SQ SCH ×2 (09:11→20:41)
[2017-11-24] MEDS: Gabapentin 400 MG Capsule PO SCH ×3 (09:12→18:33)
[2017-11-24] MEDS: Furosemide 40 MG Tablet PO SCH ×2 (09:13→18:34)
[2017-11-24] MEDS: FLUoxetine 20 MG Capsule PO SCH (09:14)
[2017-11-24] MEDS: Lisinopril 10 MG Tablet PO SCH (09:14)
[2017-11-24] MEDS: Nystatin 100,000 UNITS/GM Powder 15 GM Bottle TOPICAL SCH ×4 (09:16→20:41)
[2017-11-24] MEDS: Olopatadine 0.1% Opth Drops 5 ML Bottle EACH EYE SCH ×2 (09:16→20:41)
--- NOTE | 2017-11-24 11:36 | P.PNIM ---
Subjective Interval history: in no acute distress. no new complaints. Physical Exam Vital signs: Vital Signs 11/23/17 12:00 11/23/17 16:00 11/23/17 20:00 Temperature 97.8 F 97.8 F 97.6 F Pulse Rate 84 92 H 80 Respiratory Rate 17 17 18 Blood Pressure 123/72 120/61 133/71 Pulse Oximetry 90 L 90 L 92 L 11/24/17 00:00 11/24/17 04:00 Temperature 98.0 F 98.3 F Pulse Rate 78 64 Respiratory Rate 18 18 Blood Pressure 118/77 115/76 Pulse Oximetry 92 L 93 L Intake & Output 11/23/17 11/24/17 11/24/17 18:59 06:59 18:59 Intake Total 960 / 960 720 / 720 Balance 960 / 960 720 / 720 Weight 193 kg Intake: Oral 960 / 960 720 / 720 Other: # Voids 3 2 Date of Last Bowel Movement 11/23/17 # Bowel Movements 0 - Constitutional no acute distress - Routine Respiratory Exam Present: CTA bilaterally - Routine Cardiovascular Exam Present: RRR - Routine Abdominal Exam Present: soft Results - Labs CBC & Chem 7: 11/08/17 09:15 11/20/17 00:48 Laboratory Results - last 24 hr 11/23/17 11/24/17 12:49 08:02 POC Glucose 114 H 129 H - Procedures NONE Assessment and Plan - Assessment (1) Encounter for medical clearance for patient hold Code(s): Z00.8 - Encounter for other general examination Status: Acute (2) Adjustment disorder with mixed disturbance of emotions and conduct Code(s): F43.25 - Adjustment disorder with mixed disturbance of emotions and conduct Status: Acute (3) Social problem Code(s): Z65.9 - Problem related to unspecified psychosocial circumstances Status: Acute - Plan Anxiety- calm COPD (chronic obstructive pulmonary disease)- in remission Cellulitis- resolved Chronic pain- controlled Depressive disorder- interactive Diabetes- will continue levemir and accu-check- will hold . Hypertension -Continue baseline treatments -Hold trazodone -E-FORCSE Prescription Drug Monitoring Database has been queried and verified prior to prescribing the controlled substance. On Alprazolam 0.5mg TID , last prescribed 09/03/17. Will give alprazolam 0.5 mg q8 PRN. DVT prophylaxis SCDs consulted PT. Discharge Planning: he doesn't want to go back to his previous residence. dc planning in progress.
[2017-11-24] MEDS: Latanoprost 0.005% Opth Drops 2.5 ML Bottle EACH EYE SCH (20:41)
[2017-11-25] MEDS: Levothyroxine 125 MCG Tablet PO SCH (05:43)
[2017-11-25 08:44] VITALS: RESP 16; O2SAT 92
[2017-11-25] MEDS: Insulin NovoLOG Aspart Correctional Sugar Inj SQ SCH ×2 (08:45→14:21)
[2017-11-25] MEDS: Furosemide 40 MG Tablet PO SCH (08:47)
[2017-11-25] MEDS: Insulin Detemir Inj 1,000 UNIT/10 ML Vial SQ SCH (08:48)
[2017-11-25] MEDS: Olopatadine 0.1% Opth Drops 5 ML Bottle EACH EYE SCH (08:49)
[2017-11-25] MEDS: Gabapentin 400 MG Capsule PO SCH ×2 (08:49→14:21)
[2017-11-25] MEDS: Nystatin 100,000 UNITS/GM Powder 15 GM Bottle TOPICAL SCH ×2 (08:49→14:21)
[2017-11-25] MEDS: Lisinopril 10 MG Tablet PO SCH (08:49)
[2017-11-25] MEDS: FLUoxetine 20 MG Capsule PO SCH (08:50)
--- NOTE | 2017-11-25 11:02 | P.PNIM ---
Subjective Interval history: in no acute distress. resting comfortably with no new complaints. Physical Exam Vital signs: Vital Signs 11/24/17 12:00 11/24/17 16:00 11/24/17 20:00 Temperature 97.3 F L 97.6 F 97.8 F Pulse Rate 87 87 72 Respiratory Rate 18 18 18 Blood Pressure 147/71 H 125/75 133/85 Pulse Oximetry 95 91 L 90 L 11/25/17 04:00 11/25/17 08:00 Temperature 97.6 F Pulse Rate 63 74 Respiratory Rate 18 16 Blood Pressure 139/85 117/56 L Pulse Oximetry 91 L 92 L Intake & Output 11/24/17 11/25/17 11/25/17 18:59 06:59 18:59 Intake Total 900 / 900 Balance 900 / 900 Intake: Oral 900 / 900 Other: # Voids 3 3 Date of Last Bowel Movement 11/23/17 - Constitutional no acute distress - Routine Respiratory Exam Present: CTA bilaterally - Routine Cardiovascular Exam Present: RRR - Routine Abdominal Exam Present: soft - Routine Extremities Exam Comments: bilateral pedal edema. - Routine Neurological Exam Present: alert, oriented X3 Results - Labs CBC & Chem 7: 11/08/17 09:15 11/20/17 00:48 Laboratory Results - last 24 hr 11/24/17 11/24/17 11/24/17 13:16 16:38 20:37 POC Glucose 122 H 167 H 172 H 11/25/17 07:42 POC Glucose 103 - Procedures NONE Assessment and Plan - Assessment (1) Encounter for medical clearance for patient hold Code(s): Z00.8 - Encounter for other general examination Status: Acute (2) Adjustment disorder with mixed disturbance of emotions and conduct Code(s): F43.25 - Adjustment disorder with mixed disturbance of emotions and conduct Status: Acute (3) Social problem Code(s): Z65.9 - Problem related to unspecified psychosocial circumstances Status: Acute - Plan Anxiety- calm COPD (chronic obstructive pulmonary disease)- in remission Cellulitis- resolved Chronic pain- controlled Depressive disorder- interactive Diabetes- will continue levemir and accu-check- Hypertension -Continue baseline treatments -Hold trazodone -E-FORCSE Prescription Drug Monitoring Database has been queried and verified prior to prescribing the controlled substance. On Alprazolam 0.5mg TID , last prescribed 09/03/17. on alprazolam 0.5 mg q8 PRN. DVT prophylaxis SCDs consulted PT. Discharge Planning: dc planning; home vs SNF- hopefully soon. d/w the case management.
[2017-11-25 13:28] VITALS: BP 142/68; PULSE 86; TEMP 98.1
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
== END 2017-11-25 16:42 | disposition home or self-care (01) ==
LOC: NEPD 13:03 → NEDA 13:03 → NEPD 11-02 12:33 → NEDA 11-02 16:49 → NEPGCP 11-02 17:00 → N04 11-06 16:21
PROVIDERS: ADMIT Internal Medicine; ATTEND Internal Medicine

== ENCOUNTER 2017-12-24 23:12 | Observation (INO) ==
[2017-12-24] MEDS ORDERED: Morphine Inj 4 MG/ML Vial IV.PUSH ONE (23:49)
[2017-12-24] MEDS: Sod Chloride 0.9% Inj 1,000 ML IV.SIG SCH ×2 (23:58→23:59)
[2017-12-25 00:12] LABS: Baso % (Auto) 0.3 % (0.0-2.0); Eos # (Auto) 0.2 th/mm3 (0.0-0.4); Eos % (Auto) 1.9 % (0.0-4.0); Hematocrit 45.6 % (39.0-51.0); Hemoglobin 15.7 gm/dL (13.0-17.0); Lymph # (Auto) 1.3 th/mm3 (1.0-4.8); Lymph % (Auto) 13.8 % (9.0-44.0); Mean Corpuscular HGB Conc 34.5 % (32.0-36.0); Mean Corpuscular Hemoglobin 32.5 pg (27.0-34.0); Mean Corpuscular Volume 94.1 fL (80.0-100.0); Mean Platelet Volume 10.1 fL (7.0-11.0); Mono # (Auto) 0.7 th/mm3 (0.0-0.9); Mono % (Auto) 7.2 % (0.0-8.0); Neut % (Auto) 76.8 % (16.0-70.0); Platelet Count 200 th/mm3 (150-450); Red Blood Count 4.85 mil/mm3 (4.50-5.90); Red Cell Distribution Width 15.1 % (11.6-17.2); White Blood Count 9.2 th/mm3 (4.0-11.0)
[2017-12-25 00:23] LABS: Prothrombin Time 9.8 sec (9.8-11.6)
[2017-12-25 00:29] LABS: Alanine Aminotransferase 31 U/L (12-78); Albumin 3.1 g/dL (3.4-5.0); Anion Gap 7 meq/L (5-15); Aspartate Aminotransferase 20 U/L (15-37); Blood Urea Nitrogen 19 mg/dL (7-18); Calcium 8.7 mg/dL (8.5-10.1); Carbon Dioxide 27.6 meq/L (21.0-32.0); Chloride 103 meq/L (98-107); Glomerular Filtration Rate 89 mL/min (>89); Glucose,Random 390 mg/dL (74-106); Potassium 3.9 meq/L (3.5-5.1); Sodium 138 meq/L (136-145)
[2017-12-25 00:31] LABS: Alkaline Phosphatase 112 U/L (45-117); Total Protein 7.5 g/dL (6.4-8.2)
[2017-12-25 00:33] LABS: Creatine Kinase 76 U/L (39-308)
--- NOTE | 2017-12-25 00:51 | CT ---
EXAM DATE: 12/25/2017 12:39 AM EDT AGE/SEX: 52 years / Male INDICATIONS: Back pain; patient fell 3 days ago. CLINICAL DATA: This is the patient's initial encounter. Patient reports that signs and symptoms have been present for 1 day and indicates a pain score of 8/10. MEDICAL/SURGICAL HISTORY: Chronic obstructive pulmonary disease. Diabetes. Hypertension. Morbid obesity None. RADIATION DOSE: 61.07 CTDI (mGy) ; Patient body habitus COMPARISON: [facility], CT ABDOMEN & PELVIS W/O CONTRAST, 05/10/2014. . TECHNIQUE: Contiguous axial images were acquired with a multirow detector CT scanner without contras t. Multiplanar reconstructions in the sagittal and coronal plane were also performed. Using automate d exposure control and adjustment of the mA and/or kV according to patient size, radiation dose was k ept as low as reasonably achievable to obtain optimal diagnostic quality images. DICOM format image data is available electronically for review and comparison. FINDINGS: Extremely large body habitus compromises image quality. There is normal alignment of the vertebral harjinder dies of the lumbar spine and preservation of vertebral body height. Vacuum phenomenon present in the L3-4 interspace. Moderately prominent posterior osteophytes are present at L2-3. Stimulation lead is seen in the bony spinal canal, similar in position to prior CT in 2015. T12-L1: No fracture seen. The neural foramina are patent. L1-L2: No fracture seen. Moderately severe bilateral bony neural foraminal stenosis. Moderate size l eft parasagittal disc protrusion causes significant impression upon the thecal sac.. L2-L3: No fracture seen. Probable moderate size disc protrusion. Moderate bilateral bony neural fora suzan stenosis. L3-L4: No fracture seen. Probable moderate size disc protrusion. Moderate severity bilateral bony ne ural foraminal stenosis. L4-L5: No fracture seen. Probable moderate size disc protrusion. Moderate severity bilateral bony ne ural foraminal stenosis. L5-S1: No fracture seen. Significant facet joint hypertrophy, right greater than left. Probable disc protrusion right parasagittal extending into the neural foramen. CONCLUSION: 1. No evidence of compression deformity or spondylolisthesis. 2. Large body habitus significantly degrades image quality and causes significant quantum mottle, li miting evaluation of epidural impressions; there is suggestion of multilevel disc protrusions from L1 through S1 impressing upon the thecal sac. Electronically signed by: Alejandro Bloom MD 12/25/2017 12:50 AM EDT
[2017-12-25 01:16] LABS: Bilirubin,Urine Negative (Negative); Clarity,Urine Clear (Clear); Color,Urine Yellow (Yellw/Straw); Glucose,Urine (UA) 500 or Greater mg/dL (Negative); Hyaline Casts,Urine 1 /lpf (0-3); Leukocyte Esterase,Urine Negative (Negative); Mucus,Urine Few /lpf (Occasional); Nitrite,Urine Negative (Negative); Specific Gravity,Urine 1.023 (1.002-1.035); Squamous Epithelial Cell,Urine <1 /hpf (0-5)
--- NOTE | 2017-12-25 01:20 | ED ---
HPI General Chief Complaint: Fall Stated Complaint: Pain all over/fall Time Seen by Provider: 12/24/17 23:19 Source: patient Mode of arrival: EMS Limitations: physical limitation History of Present Illness HPI Narrative: Patient is a 52-year-old male who presents to the emergency room for evaluation of fall. Patient reports that he normally ambulates with a walker, patient reports that 3 days ago, he fell backwards and hit his low back on the metal piece of his walker. Reports that since then he has not been able to ambulate. Reports that he has severe pains to his low back. Reports that he has been incontinent of his urine and has been falling more frequently now. Reports that earlier today, he fell in his doorway, he had to call EMS to help him up. Patient reports that he fell again tonight and could not get up. Denies IVDA, reports that he does have chronic low back pain. Reports that pain is so severe, he is unable to ambulate. Related Data Home Medications Medication Instructions Recorded Confirmed acetazolamide 500 mg PO DAILY 11/01/17 12/24/17 buspirone 10 mg PO BID 11/01/17 12/24/17 fluoxetine [Prozac] 40 mg PO DAILY 11/01/17 12/24/17 furosemide [Lasix] 40 mg PO BID 11/01/17 12/24/17 gabapentin 400 mg PO TID 11/01/17 12/24/17 insulin glargine [Lantus U-100 70 unit SUB-Q QAM 11/01/17 12/24/17 Insulin] levothyroxine 125 mcg PO DAILY 11/01/17 12/24/17 lisinopril 10 mg PO DAILY 11/01/17 12/24/17 metformin 1,000 mg PO BID 11/01/17 12/24/17 multivitamin 1 tab PO DAILY 11/01/17 12/24/17 olopatadine [Patanol] 1 drp EACH EYE BID 11/01/17 12/24/17 oxycodone-acetaminophen [Percocet] 1 tab PO Q6HR PRN 11/01/17 12/24/17 polyvinyl alcohol [Artificial 1 - 2 drp EACH EYE Q1-2H PRN 11/01/17 12/24/17 Tears (polyvin alc)] potassium chloride 20 meq PO DAILY 11/01/17 12/24/17 travoprost [Travatan Z] 1 drp EACH EYE HS 11/01/17 12/24/17 Allergies Allergy/AdvReac Type Severity Reaction Status Date / Time clindamycin Allergy Severe Hives Verified 12/16/16 09:22 vancomycin Allergy Severe HIVES Verified 12/16/16 09:22 Sulfa (Sulfonamide Allergy Intermediate Hives Verified 12/16/16 09:22 Antibiotics) MRI PRECAUTION AdvReac Severe Abandoned Uncoded 12/16/16 09:22 Neuro Stimulator *MDRO Multi-Drug Resistant AdvReac Unknown Cleared Uncoded 12/16/16 09:22 Organism 02/16/16 Review of Systems ROS: all other systems reviewed are negative [facility] Medical History Medical History Anxiety (Acute) COPD (chronic obstructive pulmonary disease) (Acute) Cellulitis (Acute) Chronic pain (Acute) Depressive disorder (Acute) Diabetes (Acute) Hypertension (Acute) Social History Social History Substance History: No History of Abuse Second Hand Smoke Exposure: No Smoking Status: Current every day smoker Tobacco Type: Cigarettes How Often Do You Have a Drink Containing Alcohol: Never Recent Travel in [facility] within the Last 8 Weeks: No Recent Out of Country Travel within the Last 8 Weeks: No Immunization History Tetanus Immunization: <5 Years Exam Narrative Exam Narrative: GENERAL: moderate distress, morbidly obese SKIN: Focused skin assessment warm/dry. HEAD: Atraumatic. Normocephalic. EYES: Pupils equal and round. No scleral icterus. No injection or drainage. ENT: No nasal bleeding or discharge. Mucous membranes pink and moist. NECK: Trachea midline. No JVD. CARDIOVASCULAR: Regular rate and rhythm. No murmur appreciated. RESPIRATORY: No accessory muscle use. Clear to auscultation. Breath sounds equal bilaterally. GASTROINTESTINAL: Abdomen soft, non-tender, nondistended. Hepatic and splenic margins not palpable. MUSCULOSKELETAL: No obvious deformities. No clubbing. No cyanosis. No edema. Patient with lumbar midline tenderness NEUROLOGICAL: Awake and alert. No obvious cranial nerve deficits. Motor grossly within normal limits. Normal speech. PSYCHIATRIC: Appropriate mood and affect; insight and judgment normal. Course Initial Documented Vital Signs Temperature 98.3 F 12/24/17 23:27 Pulse Rate 97 H 12/24/17 23:27 Respiratory Rate 24 12/24/17 23:27 Blood Pressure 210/100 H 12/24/17 23:27 Pulse Oximetry 95 12/24/17 23:27 Last Documented Vital Signs Temperature 98.3 F 12/24/17 23:27 Pulse Rate 98 H 12/25/17 02:38 Respiratory Rate 20 12/25/17 02:38 Blood Pressure 163/93 H 12/25/17 02:38 Pulse Oximetry 95 12/25/17 02:38 Medical Decision Making MDM Narrative Medical decision making narrative: During the course of the patients emergency department visit, the patients history, examination, and differential diagnosis were reviewed with the patient. The patient was placed on a potline monitor with oximetry and frequent blood pressure monitoring. The patient had an IV access obtained and blood work sent for analysis. The patient was initially provided IVF as well as SQ insulin as his blood sugar is 390. CT of lumbar spine showed no compression deformity. Due to his large body habitus, and decreased image quality causing limited evaluation of epidural impressions. Given his chief complaint, and CT findings, MRI was ordered to rule out cauda equina MRI cannot be obtained tonight as patient has MRI precautions from Dr. Ricardo from 2016 - he apparently may have leads from a stimlulator still in place. Patient is unable to ambulate at this time. His BS is 390 - insulin and IVF was ordered. BP also elevated at 210/100 - he will be given a dose of IV labetolol. Plan to obs for these reasons BS now 247, bp has improved to 163/[address] Whiting who accepts pt to service Medical Screen Exam Complete: Yes Emergency Medical Condition: Yes Differential Diagnosis Differential Diagnosis: Lumbar strain, lumbar fracture, cauda equina Medical Records Medical records reviewed: Yes I reviewed the patient's medical records. Lab Data Result diagrams: 12/24/17 23:45 12/24/17 23:45 Lab Results 12/24/17 12/24/17 12/24/17 Range/Units 23:45 23:45 23:45 WBC 9.2 (4.0-11.0) th/mm3 RBC 4.85 (4.50-5.90) mil/mm3 Hgb 15.7 (13.0-17.0) gm/dL Hct 45.6 (39.0-51.0) % MCV 94.1 (80.0-100.0) fL MCH 32.5 (27.0-34.0) pg MCHC 34.5 (32.0-36.0) % RDW 15.1 (11.6-17.2) % Plt Count 200 (150-450) th/mm3 MPV 10.1 (7.0-11.0) fL Neut % (Auto) 76.8 H (16.0-70.0) % Lymph % (Auto) 13.8 (9.0-44.0) % [place] % (Auto) 7.2 (0.0-8.0) % Eos % (Auto) 1.9 (0.0-4.0) % Baso % (Auto) 0.3 (0.0-2.0) % Neut # (Auto) 7.0 (1.8-7.7) th/mm3 Lymph # (Auto) 1.3 (1.0-4.8) th/mm3 [place] # (Auto) 0.7 (0.0-0.9) th/mm3 Eos # (Auto) 0.2 (0.0-0.4) th/mm3 Baso # (Auto) 0.0 (0.0-0.2) th/mm3 WBC Differential . Differential Comment Auto diff final PT 9.8 (9.8-11.6) sec INR 1.0 Ratio Sodium 138 (136-145) meq/L Potassium 3.9 (3.5-5.1) meq/L Chloride 103 (98-107) meq/L Carbon Dioxide 27.6 (21.0-32.0) meq/L Anion Gap 7 (5-15) meq/L BUN 19 H (7-18) mg/dL Creatinine 0.89 (0.60-1.30) mg/dL Estimated GFR 89 (>89) mL/min Random Glucose 390 H (74-106) mg/dL Calcium 8.7 (8.5-10.1) mg/dL Magnesium 2.0 (1.5-2.5) mg/dL Total Bilirubin 0.2 (0.2-1.0) mg/dL AST 20 (15-37) U/L ALT 31 (12-78) U/L Alkaline Phosphatase 112 (45-117) U/L Total Creatine Kinase 76 (39-308) U/L Total Protein 7.5 (6.4-8.2) g/dL Albumin 3.1 L (3.4-5.0) g/dL Urine Color (Yellw/Straw) Urine Clarity (Clear) Urine pH (5.0-8.5) Ur Specific [place] (1.002-1.035) Urine Protein (Neg-Trace) mg/dL Urine Glucose (UA) (Negative) mg/dL Urine Ketones (Negative) mg/dL Urine Occult Blood (Negative) Urine Nitrate (Negative) Urine Bilirubin (Negative) Urine Urobilinogen (Less than 2) mg/dL Ur Leukocyte Esterase (Negative) Urine WBC (0-5) /hpf Ur Squamous Epith Cells (0-5) /hpf Hyaline Casts (0-3) /lpf Granular Casts (None) /lpf Urine Mucus (Occasional) /lpf Micro UA Comment Ur Microscopic Review Urine Culture Comments 12/25/17 Range/Units 00:50 WBC (4.0-11.0) th/mm3 RBC (4.50-5.90) mil/mm3 Hgb (13.0-17.0) gm/dL Hct (39.0-51.0) % MCV (80.0-100.0) fL MCH (27.0-34.0) pg MCHC (32.0-36.0) % RDW (11.6-17.2) % Plt Count (150-450) th/mm3 MPV (7.0-11.0) fL Neut % (Auto) (16.0-70.0) % Lymph % (Auto) (9.0-44.0) % [place] % (Auto) (0.0-8.0) % Eos % (Auto) (0.0-4.0) % Baso % (Auto) (0.0-2.0) % Neut # (Auto) (1.8-7.7) th/mm3 Lymph # (Auto) (1.0-4.8) th/mm3 [place] # (Auto) (0.0-0.9) th/mm3 Eos # (Auto) (0.0-0.4) th/mm3 Baso # (Auto) (0.0-0.2) th/mm3 WBC Differential Differential Comment PT (9.8-11.6) sec INR Ratio Sodium (136-145) meq/L Potassium (3.5-5.1) meq/L Chloride (98-107) meq/L Carbon Dioxide (21.0-32.0) meq/L Anion Gap (5-15) meq/L BUN (7-18) mg/dL Creatinine (0.60-1.30) mg/dL Estimated GFR (>89) mL/min Random Glucose (74-106) mg/dL Calcium (8.5-10.1) mg/dL Magnesium (1.5-2.5) mg/dL Total Bilirubin (0.2-1.0) mg/dL AST (15-37) U/L ALT (12-78) U/L Alkaline Phosphatase (45-117) U/L Total Creatine Kinase (39-308) U/L Total Protein (6.4-8.2) g/dL Albumin (3.4-5.0) g/dL Urine Color Yellow (Yellw/Straw) Urine Clarity Clear (Clear) Urine pH 7.0 (5.0-8.5) Ur Specific [place] 1.023 (1.002-1.035) Urine Protein 30 H (Neg-Trace) mg/dL Urine Glucose (UA) 500 or greater (Negative) mg/dL Urine Ketones Negative (Negative) mg/dL Urine Occult Blood Negative (Negative) Urine Nitrate Negative (Negative) Urine Bilirubin Negative (Negative) Urine Urobilinogen Less than 2 (Less than 2) mg/dL Ur Leukocyte Esterase Negative (Negative) Urine WBC 2 (0-5) /hpf Ur Squamous Epith Cells <1 (0-5) /hpf Hyaline Casts 1 (0-3) /lpf Granular Casts 1 (None) /lpf Urine Mucus Few H (Occasional) /lpf Micro UA Comment Culture not ind Ur Microscopic Review Not Reportable Urine Culture Comments Culture not ind Imaging Data Radiologist's impression: Lumbar Spine CT 12/25/17 00:00 CONCLUSION: 1. No evidence of compression deformity or spondylolisthesis. 2. Large body habitus significantly degrades image quality and causes significant quantum mottle, limiting evaluation of epidural impressions; there is suggestion of multilevel disc protrusions from L1 through S1 impressing upon the thecal sac. Discharge Plan Discharge Disposition Patient Disposition: 30 Still Patient Discharge Condition Condition: Fair Discharge Details Diagnosis: Hyperglycemia, Gait instability, Low back pain Physicians Team ED Provider: Emily Parikh Primary Care Provider: Primary Care Heide Swan Rxs /Orders / Referrals /Forms Prescriptions: No Action multivitamin Tablet 1 tab PO DAILY RF: 0 fluoxetine [Prozac] 40 mg Capsule 40 mg PO DAILY RF: 0 furosemide [Lasix] 40 mg Tablet 40 mg PO BID RF: 0 insulin glargine [Lantus U-100 Insulin] 100 unit/mL Solution 70 unit SUB-Q QAM RF: 0 acetazolamide 500 mg Capsule, Extended Release 500 mg PO DAILY RF: 0 polyvinyl alcohol [Artificial Tears (polyvin alc)] 1.4 % Drops 1 - 2 drp EACH EYE Q1-2H PRN (Reason: Dry Eyes) RF: 0 gabapentin 400 mg Capsule 400 mg PO TID RF: 0 travoprost [Travatan Z] 0.004 % Drops 1 drp EACH EYE HS RF: 0 oxycodone-acetaminophen [Percocet] 5-325 mg Tablet 1 tab PO Q6HR PRN (Reason: Pain) RF: 0 metformin 1,000 mg Tablet 1,000 mg PO BID RF: 0 levothyroxine 125 mcg Tablet 125 mcg PO DAILY RF: 0 buspirone 10 mg Tablet 10 mg PO BID RF: 0 olopatadine [Patanol] 0.1 % Drops 1 drp EACH EYE BID RF: 0 lisinopril 10 mg Tablet 10 mg PO DAILY RF: 0 potassium chloride 20 mEq Tablet Extended Release 20 meq PO DAILY RF: 0 Discharge Interventions Interventions: Vital Signs Last Done: 12/25/17 02:38 Status ED Status: With Doctor
[2017-12-25] MEDS ORDERED: Bisacodyl 10 MG Supp RECTAL PRN (03:31)
[2017-12-25] MEDS ORDERED: Dextrose 50% in Water 50 ML Vial IV.PUSH PRN (03:31)
[2017-12-25] MEDS: Levothyroxine 125 MCG Tablet PO SCH (05:03)
--- NOTE | 2017-12-25 05:43 | P.HPIM ---
History of Present Illness Primary Care Physician: No Primary Care Physician History of Present Illness: 52-year-old male with a history of diabetes mellitus, morbid obesity, hydrocephalus status post [employer] shunt 2 years ago who presents with 3-day history of progressively worsening right lower extremity weakness. Patient was riding on his rolling walker being pulled by a friend's several days ago when he fell backwards on his back, apparently falling on his walker and getting hit by the front bar of the walker. Patient reports low back pain, constant, sharp, radiating to the right leg with associated right leg weakness. Patient also reports a 1 day history of incontinence without dysuria. Patient reports episode last night when he was walking in his right leg strength gave out. He denies any fevers, chills, chest pain, shortness of breath, headache, nausea, vomiting, diarrhea, constipation. Review of Systems All other systems reviewed negative except as stated in HPI PMFSH - History History Provided By: Patient - Medical History Medical History: Medical History (Last Updated 12/25/17 @ 04:27 by Odell De Dios) Blind Anxiety COPD (chronic obstructive pulmonary disease) Cellulitis Chronic pain Depressive disorder Diabetes Hypertension - Surgical History Surgical History: Surgical History (Last Updated 12/25/17 @ 05:35 by Kayden Whiting MD) S/P [employer] shunt - Family History Family History: Family History (Last Updated 12/25/17 @ 05:35 by Kayden Whiting MD) Other Family history non-contributory - Tobacco History Second Hand Smoke Exposure: No Tobacco Use In Past 30 Days: No Smoking Status: Light tobacco smoker Tobacco Type: Cigarettes - Alcohol History How Often Do You Have a Drink Containing Alcohol: Never - Substance Use History Substance History: Active Abuse - Substance Use Type Marijuana Status: Active Route Used: Inhalation Reason for Use: Feels Good - Travel History Recent Travel in the [place] Within the Last 8 Weeks: No Recent Travel Out of the Country Within the Last 8 Weeks: No - Immunization History Tetanus Immunization: <5 Years Medications and Allergies Active Medications: Active Medications Acetazolamide (Diamox Sequels) 500 mg PO DAILY PRITESH Al Hydroxide/Mg Hydroxide (Milk Of Magnesia Liq) 30 ml PO Q12H PRN PRN Reason: Mild Constipation Bisacodyl (Dulcolax Supp) 10 mg RECTAL DAILY PRN PRN Reason: SEVERE CONSITIPATION Dextrose (D50w Vial) 50 ml IV.PUSH UNSCH PRN PRN Reason: PER HYPOGLYCEMIA PROTOCOL Fluoxetine HCl (Prozac) 40 mg PO DAILY PRITESH Furosemide (Lasix) 40 mg PO BID PRITESH Glucagon (Glucagon Inj) 1 mg OTHER PRN PRN PRN Reason: for Hypoglycemia Protocol Sodium Chloride (Ns Inj) 1,000 mls @ 0 mls/hr IV.SIG BOLUS PRITESH Stop: 12/25/17 23:46 Last Infusion: 12/25/17 01:41 Dose: Infused Insulin Aspart (Novolog Insulin Correctional Sugar Inj) 0 unit SQ ACHS AND 3AM PRITESH; Protocol Lactulose (Lactulose Liq) 30 ml PO DAILY PRN PRN Reason: SEVERE CONSITIPATION Latanoprost (Xalatan 0.005% Opth Drops) 1 drop EACH EYE HS PRITESH Levothyroxine Sodium (Synthroid) 125 mcg PO DAILY@0600 PRTIESH Last Admin: 12/25/17 05:03 Dose: 125 mcg Lisinopril (Prinivil) 10 mg PO DAILY PRITESH Olopatadine HCl (Patanol 0.1% Opth Drops) 1 drop EACH EYE BID PRITESH Potassium Chloride (K-Dur) 20 meq PO DAILY PRITESH Sennosides (Senokot) 17.2 mg PO Q12H PRN PRN Reason: Moderate Constipation Sodium Chloride (Ns Flush) 2 ml IV.FLUSH PRN PRN PRN Reason: FLUSH AFTER USING IV ACCESS Allergies Allergy/AdvReac Type Severity Reaction Status Date / Time clindamycin Allergy Severe Hives Verified 12/16/16 09:22 vancomycin Allergy Severe HIVES Verified 12/16/16 09:22 Sulfa (Sulfonamide Allergy Intermediate Hives Verified 12/16/16 09:22 Antibiotics) MRI PRECAUTION AdvReac Severe Abandoned Uncoded 12/16/16 09:22 Neuro Stimulator *MDRO Multi-Drug Resistant AdvReac Unknown Cleared Uncoded 12/16/16 09:22 Organism 02/16/16 Home Medications Medication Instructions Recorded Confirmed Type acetazolamide 500 mg PO DAILY 11/01/17 12/24/17 History buspirone 10 mg PO BID 11/01/17 12/24/17 History fluoxetine [Prozac] 40 mg PO DAILY 11/01/17 12/24/17 History furosemide [Lasix] 40 mg PO BID 11/01/17 12/24/17 History gabapentin 400 mg PO TID 11/01/17 12/24/17 History insulin glargine [Lantus U-100 70 unit SUB-Q QAM 11/01/17 12/24/17 History Insulin] levothyroxine 125 mcg PO DAILY 11/01/17 12/24/17 History lisinopril 10 mg PO DAILY 11/01/17 12/24/17 History metformin 1,000 mg PO BID 11/01/17 12/24/17 History multivitamin 1 tab PO DAILY 11/01/17 12/24/17 History olopatadine [Patanol] 1 drp EACH EYE BID 11/01/17 12/24/17 History oxycodone-acetaminophen [Percocet] 1 tab PO Q6HR PRN 11/01/17 12/24/17 History polyvinyl alcohol [Artificial 1 - 2 drp EACH EYE Q1-2H PRN 11/01/17 12/24/17 History Tears (polyvin alc)] potassium chloride 20 meq PO DAILY 11/01/17 12/24/17 History travoprost [Travatan Z] 1 drp EACH EYE HS 11/01/17 12/24/17 History Exam Vital signs: Vital Signs 12/24/17 23:27 12/24/17 23:41 12/25/17 01:41 Temperature 98.3 F Pulse Rate 97 H 97 H Respiratory Rate 24 20 Blood Pressure 210/100 H Pulse Oximetry 95 95 12/25/17 02:38 Temperature Pulse Rate 98 H Respiratory Rate 20 Blood Pressure 163/93 H Pulse Oximetry 95 Intake & Output 12/24/17 12/24/17 12/25/17 06:59 18:59 06:59 Intake Total 1999 Balance 1999 Weight 193.23 kg Intake: IV 1999 NS Inj 1,000 ML @ Wide Open IV. 1999 SIG BOLUS PRITESH Rx#:[id number] Narrative: GENERAL: Patient lying in bed. Appears comfortable. Alert and oriented x3. SKIN: Warm and dry. HEAD: Atraumatic. Normocephalic. EYES: Pupils equal and round. No scleral icterus. No injection or drainage. ENT: No nasal bleeding or discharge. Mucous membranes pink and moist. NECK: Trachea midline. No JVD. CARDIOVASCULAR: Regular rate and rhythm. RESPIRATORY: No accessory muscle use. Clear to auscultation. Breath sounds equal bilaterally. GASTROINTESTINAL: Abdomen soft, non-tender, nondistended. Hepatic and splenic margins not palpable. MUSCULOSKELETAL: Extremities without clubbing, cyanosis, or edema. No obvious deformities. No obvious injuries. NEUROLOGICAL: Awake and alert. No obvious cranial nerve deficits. Motor grossly within normal limits. Patient does have 4-5 strength on the right foot. Patient does not want to roll over on his back, so reflexes are not done. PSYCHIATRIC: Appropriate mood and affect; insight and judgment normal. Results - Labs CBC & Chem 7: 12/24/17 23:45 12/24/17 23:45 Labs: Short CBC 12/24/17 Range/Units 23:45 WBC 9.2 (4.0-11.0) th/mm3 Hgb 15.7 (13.0-17.0) gm/dL Hct 45.6 (39.0-51.0) % Plt Count 200 (150-450) th/mm3 BMP 12/24/17 23:45 Sodium 138 Potassium 3.9 Chloride 103 Carbon Dioxide 27.6 BUN 19 H Creatinine 0.89 Calcium 8.7 Cardiac Enzymes 12/24/17 Range/Units 23:45 Total Creatine Kinase 76 (39-308) U/L Liver Function 12/24/17 Range/Units 23:45 Total Bilirubin 0.2 (0.2-1.0) mg/dL AST 20 (15-37) U/L ALT 31 (12-78) U/L Alkaline Phosphatase 112 (45-117) U/L Albumin 3.1 L (3.4-5.0) g/dL Urine 12/25/17 Range/Units 00:50 Urine Color Yellow (Yellw/Straw) Urine Clarity Clear (Clear) Urine pH 7.0 (5.0-8.5) Ur Specific [place] 1.023 (1.002-1.035) Urine Protein 30 H (Neg-Trace) mg/dL Urine Glucose (UA) 500 or greater (Negative) mg/dL - Imaging Impressions Lumbar Spine CT 12/25/17 00:00 CONCLUSION: 1. No evidence of compression deformity or spondylolisthesis. 2. Large body habitus significantly degrades image quality and causes significant quantum mottle, limiting evaluation of epidural impressions; there is suggestion of multilevel disc protrusions from L1 through S1 impressing upon the thecal sac. Caprini VTE Risk Assessment Caprini VTE Risk Assessment: Moderate/High Risk (score >= 2) Caprini Risk Assessment Model: Point Value = 1 Point Value = 2 Point Value = 3 Point Value = 5 Age 41-60 Minor surgery BMI > 25 kg/m2 Swollen legs Varicose veins or History of unexplained or recurrent spontaneous Oral contraceptives or hormone replacement Sepsis (< 1 month) Serious lung disease, including pneumonia (< 1 month) Abnormal pulmonary function Acute myocardial infarction Congestive heart failure (< 1 month) History of inflammatory bowel disease Medical patient at bed rest Age 61-74 Arthroscopic surgery Major open surgery (> 45 min) Laparoscopic surgery (> 45 min) Malignancy Confined to bed (> 72 hours) Immobilizing plaster cast Central venous access Age >= 75 History of VTE Family history of VTE Factor V Leiden Prothrombin [id number] Lupus anticoagulant Anticardiolipin antibodies Elevated serum homocysteine Heparin-induced thrombocytopenia Other congenital or acquired thrombophilia Stroke (< 1 month) Elective arthroplasty Hip, pelvis, or leg fracture Acute spinal cord injury (< 1 month) Prophylaxis Regimen: Total Risk Factor Score Risk Level Prophylaxis Regimen 0-1 Low Early ambulation 2 Moderate Order ONE of the following: *Sequential Compression Device (SCD) *Heparin 5000 units SQ BID 3-4 Higher Order ONE of the following medications: *Heparin 5000 units SQ TID *Enoxaparin/Lovenox 40 mg SQ daily (WT < 150 kg, CrCl > 30 mL/min) *Enoxaparin/Lovenox 30 mg SQ daily (WT < 150 kg, CrCl > 10-29 mL/min) *Enoxaparin/Lovenox 30 mg SQ BID (WT < 150 kg, CrCl > 30 mL/min) AND/OR *Sequential Compression Device (SCD) 5 or more Highest Order ONE of the following medications: *Heparin 5000 units SQ TID (Preferred with Epidurals) *Enoxaparin/Lovenox 40 mg SQ daily (WT < 150 kg, CrCl > 30 mL/min) *Enoxaparin/Lovenox 30 mg SQ daily (WT < 150 kg, CrCl > 10-29 mL/min) *Enoxaparin/Lovenox 30 mg SQ BID (WT < 150 kg, CrCl > 30 mL/min) AND *Sequential Compression Device (SCD) Assessment and Plan - Plan //Right lower extremity weakness //Suspected lumbar radiculopathy //Status post mechanical fall with injury to low back. -For quality CT scan due to morbid obesity. Patient with [employer] shunt and may not be able to do MRI as per Dr. Ricardo in 2016. Neurosurgery will be consulted. Neurochecks. //Diabetes mellitus. Hyperglycemia Diabetic diet. Insulin sliding scale. Continue to monitor. //Neuropathy. Continue home meds. //Depression. Chronic. Continue home medication. Hypothyroidism. Chronic. Continue home medication. Hypertension. Market hypertension above 200 systolic on admission. Restart home medications. Continue medication. Discussed Condition With: Patient, nurse, ED physician. H&P: Quality - VTE Deep Vein Thrombosis/Pulmonary Embolism Present on Admission: No
[2017-12-25] MEDS: FLUoxetine 20 MG Capsule PO SCH (08:00)
--- NOTE | 2017-12-25 08:24 | P.PN ---
Subjective Interval history: Follow up on patient with back pain. Neurosurgery evaluated patient. MRI done revealing diffuse degenerative changes with broad based bulges with mild thecal sac flattening at L23, L34 and L45, the most prominent bulges at L34 with left lateral recess narrowing. No evidence of acute injury. ESR 6 Physical Exam Vital signs: Vital Signs 12/24/17 23:27 12/24/17 23:41 12/25/17 01:41 Temperature 98.3 F Pulse Rate 97 H 97 H Respiratory Rate 24 20 Blood Pressure 210/100 H Pulse Oximetry 95 95 12/25/17 02:38 12/25/17 05:58 12/25/17 08:00 Temperature 97.5 F L Pulse Rate 98 H 92 H 88 Respiratory Rate 20 18 16 Blood Pressure 163/93 H 158/88 H 162/91 H Pulse Oximetry 95 94 L 93 L Intake & Output 12/24/17 12/25/17 12/25/17 18:59 06:59 18:59 Intake Total 1999 Balance 1999 Weight 193.23 kg Intake: IV 1999 NS Inj 1,000 ML @ Wide Open IV. 1999 SIG BOLUS PRITESH Rx#:[id number] Results - Labs CBC & Chem 7: 12/24/17 23:45 12/24/17 23:45 Laboratory Results - last 24 hr 12/24/17 12/24/17 12/24/17 23:45 23:45 23:45 WBC 9.2 RBC 4.85 Hgb 15.7 Hct 45.6 MCV 94.1 MCH 32.5 MCHC 34.5 RDW 15.1 Plt Count 200 MPV 10.1 Neut % (Auto) 76.8 H Lymph % (Auto) 13.8 [place] % (Auto) 7.2 Eos % (Auto) 1.9 Baso % (Auto) 0.3 Neut # (Auto) 7.0 Lymph # (Auto) 1.3 [place] # (Auto) 0.7 Eos # (Auto) 0.2 Baso # (Auto) 0.0 WBC Differential . Differential Comment Auto diff final PT 9.8 INR 1.0 Sodium 138 Potassium 3.9 Chloride 103 Carbon Dioxide 27.6 Anion Gap 7 BUN 19 H Creatinine 0.89 Estimated GFR 89 POC Glucose Random Glucose 390 H Calcium 8.7 Magnesium 2.0 Total Bilirubin 0.2 AST 20 ALT 31 Alkaline Phosphatase 112 Total Creatine Kinase 76 Total Protein 7.5 Albumin 3.1 L Urine Color Urine Clarity Urine pH Ur Specific [place] Urine Protein Urine Glucose (UA) Urine Ketones Urine Occult Blood Urine Nitrate Urine Bilirubin Urine Urobilinogen Ur Leukocyte Esterase Urine WBC Ur Squamous Epith Cells Hyaline Casts Granular Casts Urine Mucus Micro UA Comment Ur Microscopic Review Urine Culture Comments 12/25/17 12/25/17 12/25/17 00:50 06:41 07:24 WBC RBC Hgb Hct MCV MCH MCHC RDW Plt Count MPV Neut % (Auto) Lymph % (Auto) [place] % (Auto) Eos % (Auto) Baso % (Auto) Neut # (Auto) Lymph # (Auto) [place] # (Auto) Eos # (Auto) Baso # (Auto) WBC Differential Differential Comment PT INR Sodium Potassium Chloride Carbon Dioxide Anion Gap BUN Creatinine Estimated GFR POC Glucose 239 H 237 H Random Glucose Calcium Magnesium Total Bilirubin AST ALT Alkaline Phosphatase Total Creatine Kinase Total Protein Albumin Urine Color Yellow Urine Clarity Clear Urine pH 7.0 Ur Specific [place] 1.023 Urine Protein 30 H Urine Glucose (UA) 500 or greater Urine Ketones Negative Urine Occult Blood Negative Urine Nitrate Negative Urine Bilirubin Negative Urine Urobilinogen Less than 2 Ur Leukocyte Esterase Negative Urine WBC 2 Ur Squamous Epith Cells <1 Hyaline Casts 1 Granular Casts 1 Urine Mucus Few H Micro UA Comment Culture not ind Ur Microscopic Review Not Reportable Urine Culture Comments Culture not ind - Imaging Impressions Lumbar Spine CT 12/25/17 00:00 CONCLUSION: 1. No evidence of compression deformity or spondylolisthesis. 2. Large body habitus significantly degrades image quality and causes significant quantum mottle, limiting evaluation of epidural impressions; there is suggestion of multilevel disc protrusions from L1 through S1 impressing upon the thecal sac. Assessment and Plan - Plan 52-year-old male with a history of diabetes mellitus, morbid obesity, hydrocephalus status post [employer] shunt 2 years ago who presents with 3-day history of progressively worsening right lower extremity weakness. Right lower extremity weakness Suspected lumbar radiculopathy Status post mechanical fall with injury to low back. -For quality CT scan due to morbid obesity. Patient with [employer] shunt and may not be able to do MRI as per Dr. Ricardo in 2016. Neurosurgery following, appreciate assistance. MRI lumbar spine done revealing multiple level broad-based disc bulges, no acute fracture. -PT eval/tx Hypertension Marked hypertension above 200 systolic on admission, suspect uncontrolled back pain contributing -BP improved -Continue on lisinopril, Lasix Diabetes mellitus. Hyperglycemia Diabetic diet -accucheks and Insulin sliding scale -Blood sugar running mid to high 200s, start on Levemir 5 units twice daily -Continue to monitor Neuropathy -Continue home meds Depression, chronic -Continue home medication Hypothyroidism, chronic -Continue home medication. Morbid obesity BMI 59.4 -patient would benefit from lifestyle modification, weight loss, regular exercise program DVT prophylaxis SCD/CHANDLER dasilva
[2017-12-25] MEDS: Ibuprofen 600 MG Tablet PO PRN ×2 (08:38→15:53)
[2017-12-25] MEDS: Lisinopril 10 MG Tablet PO SCH (08:39)
[2017-12-25] MEDS: Gabapentin 400 MG Capsule PO SCH ×3 (08:39→17:53)
[2017-12-25] MEDS: Furosemide 40 MG Tablet PO SCH ×2 (08:39→22:25)
[2017-12-25] MEDS: Olopatadine 0.1% Opth Drops 5 ML Bottle EACH EYE SCH ×2 (08:39→22:25)
[2017-12-25] MEDS: Insulin NovoLOG Aspart Correctional Sugar Inj SQ SCH ×4 (09:33→22:45)
--- NOTE | 2017-12-25 13:13 | XR ---
EXAM DATE: 12/25/2017 1:09 PM EDT AGE/SEX: 52 years / Male INDICATIONS: Concern for shunt patency, patient states complaints of severe headache and pressure. CLINICAL DATA: This is the patient's initial encounter. Patient reports that signs and symptoms have been present for 2 weeks and indicates a pain score of 10/10. MEDICAL/SURGICAL HISTORY: . . Chronic obstructive pulmonary disease. Diabetes. Hypertension. Mo rbid obesity None. COMPARISON: [facility] – [place], 02/18/2012. . FINDINGS: Examination includes two-view skull, two-view C-spine, and frontal views of the chest and abdomen. Ventriculostomy shunt tip is projected in the . The alignment of the tubing with the reservoir is maintained without evidence of separation. The shunt tubing has a normal course through the neck and chest without discontinuity or kink. The shunt tubing is coiled in the abdomen without displacement of the bowel about the distal tip. CONCLUSION: Negative examination. Electronically signed by: Carlos Gonzales MD 12/25/2017 1:11 PM EDT
[2017-12-25] MEDS ORDERED: Gadobutrol PF 10 MMOL/10 ML Vial (for RAD) IV.SIG ONE (13:30)
--- NOTE | 2017-12-25 14:08 | MR ---
EXAM DATE: 12/25/2017 2:01 PM EDT AGE/SEX: 52 years / Male INDICATIONS: Pain. Fall. CLINICAL DATA: This is the patient's initial encounter. Patient reports that signs and symptoms have been present for 2 days and indicates a pain score of 5/10. MEDICAL/SURGICAL HISTORY: Chronic obstructive pulmonary disease. Diabetes mellitus type II. H ypertension. Obesity, hydrocephalus. . W[employer] SPLIC[employer] shunt. COMPARISON: [facility] – [place] LUMBAR SPINE W/O CONTRAST, 12/25/2017. . TECHNIQUE: Multiplanar, multisequence MRI examination of the lumbar spine was performed without and with 20cc ml Gadavist (gadobutrol) contrast as a single exam dose. FINDINGS: The most caudal-appearing lumbar vertebra is numbered as L5. Vertebra: Homogeneous signal. Normal alignment. There is mild intervertebral disc space narrowing a t the L3-4, and to lesser extent L2-3 and L4-5 levels. Conus: Normal level and configuration. Post Contrast: No abnormal areas of contrast enhancement are seen. T12-L1: The thecal sac has a normal diameter. No evidence of disc bulge or protrusion. The neural foramina are patent bilaterally. L1-L2: The thecal sac has a normal diameter. No evidence of disc bulge or protrusion. The neural foramina are patent bilaterally. L2-L3: The thecal sac is slightly flattened on the right. There is a diffuse annular bulge. The bul ge slightly narrows the right neural foramen. Mild degenerative facet disease. L3-L4: There is a broad-based posterior annular bulge left greater than right. The left lateral rec ess is mildly narrowed. Facet joints are hypertrophied left greater than right. It narrows the left n eural foramen L4-L5: There is a broad-based diffuse annular bulge. Nerve roots exit without difficulty. Moderate degenerative facet disease. Thecal sac is clearly flattened. L5-S1: The thecal sac has a normal diameter. No evidence of disc bulge or protrusion. The neural foramina are patent bilaterally. Moderate degenerative facet disease right greater than left CONCLUSION: 1. Broad-based bulges with mild thecal sac flattening at L2-3, L3-4 and L4-5. The most prominent bul ges at L3-4 level with the left lateral recess is mildly narrowed. 2. Chronic degenerative facet disease throughout the lower lumbar spine. No evidence of acute injury Electronically signed by: Carlos Gonzales MD 12/25/2017 2:07 PM EDT
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
[2017-12-25] MEDS ORDERED: Latanoprost 0.005% Opth Drops 2.5 ML Bottle EACH EYE SCH (21:00)
[2017-12-25] MEDS ORDERED: Insulin Detemir Inj 1,000 UNIT/10 ML Vial SQ SCH (21:00)
[2017-12-26 03:52] VITALS: RESP 18
[2017-12-26] MEDS: Insulin NovoLOG Aspart Correctional Sugar Inj SQ SCH ×3 (04:28→13:00)
[2017-12-26] MEDS: Levothyroxine 125 MCG Tablet PO SCH (05:08)
[2017-12-26] MEDS: Ibuprofen 600 MG Tablet PO PRN (05:08)
[2017-12-26] MEDS: Olopatadine 0.1% Opth Drops 5 ML Bottle EACH EYE SCH (08:41)
[2017-12-26] MEDS: Gabapentin 400 MG Capsule PO SCH ×2 (08:42→12:36)
[2017-12-26] MEDS: Lisinopril 10 MG Tablet PO SCH (08:42)
[2017-12-26] MEDS: Furosemide 40 MG Tablet PO SCH (08:42)
[2017-12-26] MEDS: FLUoxetine 20 MG Capsule PO SCH (08:42)
[2017-12-26] MEDS ORDERED: Insulin Detemir Inj 1,000 UNIT/10 ML Vial SQ SCH (09:00)
--- NOTE | 2017-12-26 09:09 | P.PN ---
Subjective Interval history: Follow up on patient with back pain. Patient seen and examined. Patient states his back is a little better this morning. He says he had no back pain until he had the recent fall. He denies any other acute medical complaints. He is requesting a new voice glucometer, ear thermometer and blood pressure cuff. Physical Exam Vital signs: Vital Signs 12/25/17 12:00 12/25/17 15:39 12/25/17 20:00 Temperature 98.1 F 98.3 F 98.1 F Pulse Rate 86 84 85 Respiratory Rate 20 16 17 Blood Pressure 138/72 141/88 H 143/84 H Pulse Oximetry 94 L 92 L 92 L 12/26/17 00:00 12/26/17 00:24 12/26/17 03:51 Temperature Pulse Rate 88 83 Respiratory Rate 18 19 18 Blood Pressure 146/107 H 142/78 H Pulse Oximetry 91 L 91 L 12/26/17 07:23 Temperature 97.8 F Pulse Rate 89 Respiratory Rate 18 Blood Pressure 145/86 H Pulse Oximetry 92 L Intake & Output 12/25/17 12/26/17 12/26/17 18:59 06:59 18:59 Output Total 1500 / 1500 Balance -1500 / -1500 Output: Urine 1500 / 1500 Other: # Voids 2 Date of Last Bowel Movement 12/25/17 Narrative: GENERAL: WDWN obese male patient, INAD. Awake and alert. Sitting in bedside chair. SKIN: Warm and dry. HEENT: Atraumatic. Normocephalic. Pupils equal and round. No scleral icterus. No injection or drainage. No nasal bleeding or discharge. Mucous membranes pink and moist. NECK: Trachea midline. CARDIOVASCULAR: Regular rate and rhythm. RESPIRATORY: No accessory muscle use. Clear to auscultation. Breath sounds equal bilaterally. GASTROINTESTINAL: Abdomen soft, non-tender, nondistended. +BS. MUSCULOSKELETAL: Extremities without clubbing, cyanosis, or edema. No obvious deformities. NEUROLOGICAL: Awake and alert. No obvious cranial nerve deficits. Motor grossly within normal limits except for decreased strength right foot. Able to move all extremities spontaneously. Normal speech. PSYCHIATRIC: Appropriate mood and affect; insight and judgment normal. Results - Labs CBC & Chem 7: 12/24/17 23:45 12/24/17 23:45 Laboratory Results - last 24 hr 12/25/17 12/25/1718 13:55 15:10 17:03 ESR 6 POC Glucose 244 H C-Reactive Protein 2.69 H 12/25/17 12/25/17 12/26/17 17:42 22:34 04:05 ESR POC Glucose 254 H 234 H 211 H C-Reactive Protein 12/26/17 08:48 ESR POC Glucose 246 H C-Reactive Protein - Imaging Impressions Lumbar Spine MRI 12/25/17 00:00 CONCLUSION: 1. Broad-based bulges with mild thecal sac flattening at L2-3, L3-4 and L4-5. The most prominent bulges at L3-4 level with the left lateral recess is mildly narrowed. 2. Chronic degenerative facet disease throughout the lower lumbar spine. No evidence of acute injury Shunt Study 12/25/17 00:00 CONCLUSION: Negative examination. Assessment and Plan - Plan 52-year-old male with a history of diabetes mellitus, morbid obesity, hydrocephalus status post PIT FURNACE OPERATOR shunt 2 years ago who presents with 3-day history of progressively worsening right lower extremity weakness. Right lower extremity weakness, improved Low back pain, improved Suspected lumbar radiculopathy Status post mechanical fall with injury to low back. Neurosurgery following, appreciate assistance. MRI lumbar spine done revealing multiple level broad-based disc bulges, no acute fracture. No plans for surgical intervention. Conservative management for now. NS has signed off. -PT and OT evaluated Hypertension Marked hypertension above 200 systolic on admission, suspect uncontrolled back pain contributing -BP improved -Continue on lisinopril, Lasix Diabetes mellitus. Hyperglycemia Diabetic diet -patient takes 70u Lantus daily at home. BS 245 this am. Increase Levemir to 10u BID and add preprandial Aspart 3u TIDAC. -accucheks and Insulin sliding scale -Continue to monitor Neuropathy -Continue home meds Depression, chronic -Continue home medication Hypothyroidism, chronic -Continue home medication. Morbid obesity BMI 59.4 -patient would benefit from lifestyle modification, weight loss, regular exercise program DVT prophylaxis SCD/CHANDLER hose Discharge patient to home Condition on discharge: Improved Heart healthy diabetic diet as tolerated Activity per PT recommendations Rx written: Percocet 5/325mg #12 [facility] Prescription Drug Monitoring Database has been queried and verified prior to prescribing the controlled substance. Acute pain exception. This patient has normal, predicted, physiological, and time limited response to an adverse mechanical stimulus associated with surgery, trauma, or acute illness as described in my notes. There is a lack of alternative treatment options other than to include the prescribed narcotic treatment for this condition. Follow-up with primary care physician and neurosurgery Code Status: Full Discussed Condition With: patient, nursing staff, Dr. Potter Discharge Planning: Discharge pending neurosurgery clearance
--- NOTE | 2017-12-26 10:26 | P.PNNS ---
Subjective Interval history: Pt awake and alert. Sitting up in chair. States he is feeling a little better today. He has low back pain but no radiculopathy in LEs. He states the spasms are improving in the right leg. He is hoping to have home PT when he is discharged. Physical Exam Vital signs: Vital Signs 12/25/17 12:00 12/25/17 15:39 12/25/17 20:00 Temperature 98.1 F 98.3 F 98.1 F Pulse Rate 86 84 85 Respiratory Rate 20 16 17 Blood Pressure 138/72 141/88 H 143/84 H Pulse Oximetry 94 L 92 L 92 L 12/26/17 00:00 12/26/17 00:24 12/26/17 03:51 Temperature Pulse Rate 88 83 Respiratory Rate 18 19 18 Blood Pressure 146/107 H 142/78 H Pulse Oximetry 91 L 91 L 12/26/17 07:23 Temperature 97.8 F Pulse Rate 89 Respiratory Rate 18 Blood Pressure 145/86 H Pulse Oximetry 92 L Intake & Output 12/25/17 12/26/17 12/26/17 18:59 06:59 18:59 Output Total 1500 / 1500 Balance -1500 / -1500 Output: Urine 1500 / 1500 Other: # Voids 2 Date of Last Bowel Movement 12/25/17 - Constitutional no acute distress, morbidly obese - Routine HEENT Exam Head: Absent: normocephalic (Right CARD CLEANER shunt.) Eye: Absent: PERRL (Pupils equal. Right Pupil 3mm slight reaction, pt states he is blind in this eye since the only sees black. Right eye also laterally deviates. Left pupil 3mm reactive.) ENT: Present: oropharynx clear - Routine Neck Exam Present: trachea midline - Routine Respiratory Exam Present: CTA bilaterally. Absent: respiratory distress, rhonchi, wheezes - Routine Cardiovascular Exam Present: RRR, S1, S2. Absent: murmur - Routine Abdominal Exam Present: soft, normoactive bowel sounds. Absent: tenderness, distended, firm - Routine Skin Exam Absent: cyanosis, erythema Comments: old lumbar incision well healed without signs of complication. - Routine Neurological Exam Present: alert, oriented X3, moving all extremities, normal speech. Absent: sensory deficit, motor deficit, altered mental status - Routine Psychiatric Exam Present: normal affect, cooperative. Absent: depressed, agitated Assessment and Plan - Assessment (1) Encounter for medical clearance for patient hold Code(s): Z00.8 - Encounter for other general examination Status: Acute (2) Adjustment disorder with mixed disturbance of emotions and conduct Code(s): F43.25 - Adjustment disorder with mixed disturbance of emotions and conduct Status: Acute (3) Social problem Code(s): Z65.9 - Problem related to unspecified psychosocial circumstances Status: Acute (4) Hyperglycemia Code(s): R73.9 - Hyperglycemia, unspecified Status: Acute (5) Gait instability Code(s): R26.81 - Unsteadiness on feet Status: Acute (6) Low back pain Code(s): M54.5 - Low back pain Status: Acute - Plan 52yoM with subjective complaint of back pain and weakness after fall mid week, 450 lbs, with remote history of DM and osteo of the right foot, as well as shunts for pseudotumor (LP and CARD CLEANER--both on right). Plan: Dr. Delcid and Dr. Chino have both reviewed MRI of lumbar spine and recommend nonsurgical management for his mild lumbar stenosis. Pt agrees with the plan and is hopeful we can set up home PT. Nothing more surgically to offer and pt can be discharged home from our standpoint. We will sign off.
--- NOTE | 2017-12-26 11:05 | P.DCO ---
- Diagnosis (1) DDD (degenerative disc disease), lumbar Status: Acute (2) Lumbar spinal stenosis Status: Acute (3) Impaired activities of daily living Status: Acute (4) Gait instability Status: Acute (5) Low back pain Status: Acute - Physical Therapy Order: Evaluate and treat, Improve ambulation, Strength and gait training - Home Health Nursing Order: Medical education, Signs/symptoms of disease process, Medication education-adverse effect, Nursing assessment with vital signs - Case Management Consult No - Certification I have seen patient Marlon King on 12/26/17. My clinical findings support the need for the requested home health care services because: Limited mobility due to disease progression, Deconditioned with increased weakness, Limited ability to care for self, High risk of falls I certify that my clinical findings support that this patient is homebound because: Unsteady gait/balance, Unsafe to leave home unassisted, Unable to use public transportation
[2017-12-26 11:28] VITALS: BP 125/68; PULSE 87; TEMP 97.6; O2SAT 95
== END 2017-12-26 15:33 | disposition home health service (06) ==
LOC: NEPC 23:12 → NEDA 23:12 → NEPGCP 12-25 04:09
PROVIDERS: ADMIT Hospitalist; ATTEND Hospitalist